=== PATIENT | male | born 1955 | race American Indian/Alaskan Native ===

== ENCOUNTER 2017-11-24 20:02 | Observation (INO) | payer MEDICARE, OTHER ==
--- NOTE | 2017-11-24 20:45 | ED PDOC ---
Arrival/HPI - General Chief Complaint: Altered Mental Status Time Seen by Provider: 11/24/17 20:24 Historian: Spouse EM Caveat: Altered Mental Status - History of Present Illness Time/Duration: Prior to Arrival Symptom Onset: Gradual Symptom Course: Worsening Severity Level: Severe Associated Symptoms (Text): 11/24/17 20:42 reports that the patient complains of numbness of the entire left side of his body along with weakness which began upon awakening this morning. reports he complained of left-sided chest pain. She reports she has cardiac stents from [place]. He was seen in another hospital emergency department and she reports he signed himself out as he was feeling better. He was to be admitted. He was on his way home when the numbness on the left side of his body returned and he fell to the street. There was no injury. The patient is currently nonverbal and unable to give any history. History is obtained from the . This has never occurred previously. He is able to follow commands, but unable to answer questions. Past Medical History - Cardiac Other/Comment: "stim" L side chest. - Psychiatric Hx Substance Use: No - Surgical History Hx Orthopedic Surgery: Yes ([place] in R leg after fall.) - Anesthesia Hx Anesthesia: Yes Hx Anesthesia Reactions: No Family/Social History - Physician Review Nursing Documentation Reviewed: Yes Family/Social History: Unknown Family HX Smoking Status: Never Smoked Hx Alcohol Use: No Hx Substance Use: No Allergies/Home Meds Allergies/Adverse Reactions: Allergies Iodinated Contrast- Oral and IV Dye Allergy (Verified 11/24/17 20:38) SWELLING Review of Systems - Review of Systems Systems not reviewed;Unavailable: Altered Mental Status Physical Exam Vital Signs Temp Pulse Resp BP Pulse Ox 11/24/17 22:00 97.1 F L 11/24/17 20:36 71 18 142/77 98 Temperature: Afebrile Blood Pressure: Normal Pulse: Regular Respiratory Rate: Normal Appearance: Positive for: Well-Appearing, Non-Toxic, Comfortable Pain Distress: None Mental Status: Positive for: Lethargic, other (He will follow commands. Nonverbal.) - Systems Exam Head: Present: Atraumatic, Normocephalic Pupils: Present: PERRL Extroacular Muscles: Present: EOMI Conjunctiva: Present: Normal Ears: Present: NORMAL TM, Normal Canal. No: Erythema Mouth: Present: Moist Mucous Membranes Pharnyx: No: ERYTHEMA, EXUDATE, TONSILS ENLARGED Neck: Present: Normal Range of Motion Respiratory/Chest: Present: Clear to Auscultation, Good Air Exchange, Decreased Breath Sounds. No: Respiratory Distress, Accessory Muscle Use Cardiovascular: Present: Regular Rate and Rhythm, Normal S1, S2. No: Murmurs Abdomen: No: Tenderness, Distention, Peritoneal Signs, Rebound, Guarding Back: Present: Normal Inspection Upper Extremity: Present: Normal Inspection. No: Cyanosis, Edema Lower Extremity: Present: Normal Inspection. No: Edema Neurological: Present: GCS=15, CN II-XII Intact, Speech Normal, Motor Func Grossly Intact. No: Normal Sensory Function (Unable to test), Normal Cerebellar Funct (Unable to test), Gait Normal (Unable to test) Skin: Present: Warm, Dry, Normal Color. No: Rashes Medical Decision Making ED Course and Treatment: 11/24/17 22:04 EKG shows normal sinus rhythm rate approximately 70 with a primary AV block and nonspecific ST and T-wave changes with no old available for comparison. 11/24/17 22:09 Discussed with , who will place on telemetry observation on the hospitalist service. 11/24/17 22:28 CT scan of the head as read by the [facility] radiology shows no acute findings. - Lab Interpretations Lab Results: 11/24/17 21:00 11/24/17 21:00 Lab Results 11/24/17 21:56: Urine Opiates Screen Negative, Urine Methadone Screen Negative, Ur Barbiturates Screen Negative, Ur Phencyclidine Scrn Negative, Ur Amphetamines Screen Negative, U Benzodiazepines Scrn Negative, U Oth Cocaine Metabols Negative, U Cannabinoids Screen Negative 11/24/17 21:41: Urine Color Light yellow, Urine Appearance Clear, Urine pH 6.0, Ur Specific Elliott 1.015, Urine Protein Negative, Urine Glucose (UA) Negative, Urine Ketones Negative, Urine Blood Negative, Urine Nitrate Negative, Urine Bilirubin Negative, Urine Urobilinogen 0.2, Ur Leukocyte Esterase Negative 11/24/17 21:00: Acetaminophen < 10.0 L 11/24/17 21:00: TSH 3rd Generation 1.47, Alcohol, Quantitative 189 H 11/24/17 21:00: Sodium 147, Potassium 3.4 L, Chloride 107, Carbon Dioxide 24, Anion Gap 19, BUN 9, Creatinine 0.7 L, Est GFR ( Amer) > 60, Est GFR (Non -Af Amer) > 60, Random Glucose 79, Calcium 9.0, Phosphorus 3.8, Magnesium 1.6 L , Total Bilirubin 0.5, AST 100 H, ALT 72 H, Alkaline Phosphatase 89, Lactate Dehydrogenase 497, Total Creatine Kinase 488 H, CK-MB (CK-2) 3.2, CK-MB (CK-2) % Cancelled, Troponin I < 0.01, Total Protein 7.6, Albumin 4.1, Globulin 3.5, Albumin/Globulin Ratio 1.2 11/24/17 21:00: PT 10.8, INR 0.95, APTT 33.1 11/24/17 21:00: WBC 3.1 L, RBC 3.73, Hgb 11.5 L, Hct 33.8 L, MCV 90.6, MCH 30.8 , MCHC 34.0, RDW 14.6 H, Plt Count 144, MPV 10.1, Gran % 38.7 L, Lymph % (Auto) 50.8 H, [place] % (Auto) 8.2 H, Eos % (Auto) 2.0, Baso % (Auto) 0.3, Gran # 1.18 L , Lymph # (Auto) 1.6, [place] # (Auto) 0.3, Eos # (Auto) 0.1, Baso # (Auto) 0.01 - RAD Interpretation Radiology Orders: 11/24/17 20:40 HEAD W/O CONTRAST [CT] Stat 11/24/17 20:41 CHEST PORTABLE [RAD] Stat Chest one view shows no infiltrate effusion or cardiomegaly. Warp Starter: ED Physician - Medication Orders Current Medication Orders: Discontinued Medications Aspirin (Aspirin Chewable) 324 mg PO ONCE ONE Stop: 11/24/17 22:20 Potassium Chloride (Klor-Con 10) 10 meq PO STAT STA Stop: 11/24/17 22:20 Disposition/Present on Arrival - Present on Arrival Any Indicators Present on Arrival: No History of DVT/PE: No History of Uncontrolled Diabetes: No Urinary Catheter: No History of Decub. Ulcer: No History Surgical Site Infection Following: None - Disposition Have Diagnosis and Disposition been Completed?: Yes Diagnosis: Chest pain, Altered mental status, Alcohol intoxication, Hypokalemia Disposition: HOSPITALIZED Disposition Time: 22:27 Patient Plan: Observation, Telemetry Patient Problems: Current Active Problems Problem Status Onset Alcohol intoxication Acute Altered mental status Acute Chest pain Acute Hypokalemia Acute Condition: FAIR Discharge Instructions (ExitCare): Chest Pain (ED) Referrals: Cameron Shaw MD [Primary Care Provider] - Follow up with primary Forms: [employer] ([place])
[2017-11-24 21:46] LABS: BASO # 0.01 K/mm3 (0.0-2.0); BASO % 0.3 % (0.0-3.0); EOS # 0.1 (0.0-0.7); GRAN # 1.18 (1.4-6.5); GRAN % 38.7 % (50.0-68.0); HEMOGLOBIN 11.5 g/dL (14.0-18.0); LYMPH # 1.6 (1.2-3.4); LYMPH % 50.8 % (22.0-35.0); MEAN CELL VOLUME 90.6 fl (80.0-105.0); MEAN CORPUSCULAR HEMOGLOBIN 30.8 pg (25.0-35.0); MEAN PLATELET VOLUME 10.1 fl (7.0-11.0); MONO # 0.3 (0.1-0.6); MONO % 8.2 % (1.0-6.0); RBC 3.73 10^6/uL (3.5-6.1); RED CELL DISTRIBUTION WIDTH 14.6 % (11.5-14.5); WHITE BLOOD COUNT 3.1 10^3/ul (4.5-11.0)
[2017-11-24 21:54] LABS: ALB/GLOB RATIO 1.2 (1.1-1.8); ALBUMIN 4.1 g/dL (3.0-4.8); ALT/SGPT 72 U/L (7-56); AST/SGOT 100 U/L (17-59); BLOOD UREA NITROGEN 9 mg/dL (7-21); GFR NON-AFRICAN AMERICAN > 60
[2017-11-24 22:00] LABS: URINE APPEARANCE CLEAR (CLEAR); URINE BILIRUBIN NEGATIVE (NEGATIVE); URINE BLOOD NEGATIVE (NEGATIVE); URINE COLOR LIGHT YELLOW (YELLOW); URINE GLUCOSE (UA) NEGATIVE (NEGATIVE); URINE LEUKOCYTE ESTERASE NEGATIVE Leu/uL (NEGATIVE); URINE PROTEIN NEGATIVE mg/dL (<30 mg/dL); URINE UROBILINOGEN 0.2 E.U./dL (<1 E.U./dL)
[2017-11-24 22:01] LABS: INR 0.95 (0.93-1.08); PARTIAL THROMBOPLASTIN TIME 33.1 Seconds (25.1-36.5); PROTHROMBIN TIME 10.8 SECONDS (9.4-12.5)
[2017-11-24 22:05] LABS: TROPONIN I < 0.01 ng/mL
[2017-11-24 22:14] LABS: CK-MB 3.2 ng/mL (0.0-3.6)
[2017-11-24] MEDS ORDERED: Potassium Chloride 10 mEq ER Tab PO STA (22:19)
[2017-11-24 22:22] LABS: BARBITURATES, UR NEGATIVE (NEGATIVE); BENZODIAZEPINES, UR NEGATIVE (NEGATIVE); OPIATES, UR NEGATIVE (NEGATIVE); PHENCYCLIDINE, UR NEGATIVE (NEGATIVE)
--- NOTE | 2017-11-24 22:26 | CT ---
EXAM: CT Head Without Intravenous Contrast CLINICAL HISTORY: 62 years old, male; Signs and symptoms; Coma or unconsciousness; Additional info: AMS TECHNIQUE: Axial computed tomography images of the head/brain without intravenous contrast. All CT scans at this facility use one or more dose reduction techniques, viz.: automated exposure control; ma/kV adjustment per patient size (including targeted exams where dose is matched to indication; i.e. head); or iterative reconstruction technique. Coronal and sagittal reformatted images were created and reviewed. COMPARISON: No relevant prior studies available. FINDINGS: Brain: There is mild diffuse cerebral atrophy present, consistent with this patient's age. There is mild diffuse heterogeneity of the white matter attenuation, consistent with chronic white matter ischemic changes. No hemorrhage. Ventricles: The ventricular system demonstrates mild diffuse compensatory enlargement. Bones/joints: Unremarkable. No acute fracture. Soft tissues: Mild left parietal scalp soft tissue swelling. Sinuses: Unremarkable as visualized. No acute sinusitis. Mastoid air cells: Unremarkable as visualized. No mastoid effusion. IMPRESSION: Age-related atrophy and chronic white matter ischemic changes, with no evidence of an acute intracranial abnormality. Mild left parietal scalp soft tissue swelling.
[2017-11-24] MEDS ORDERED: Multivitamin (MVI) 10 ML, Thiamine 100 MG, Folic Acid 1 MG in Dextrose 5% In Water 1,00... IV ONE (23:19)
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
[2017-11-25] MEDS: Sodium Chloride 0.9% 100 ML IV SCH ×3 (02:14→20:30)
[2017-11-25] MEDS: Sodium Chloride 0.9% 1,000 ML IV SCH ×4 (02:37→21:45)
[2017-11-25 03:46] LABS: IRON 53 ug/dL (45-180)
[2017-11-25 04:01] LABS: % IRON SATURATION 25 % (20-55)
[2017-11-25 04:11] LABS: TOTAL IRON BINDING CAPACITY 195 ug/dL (261-462)
[2017-11-25] MEDS ORDERED: Magnesium Sulfate 1 gm in D5W 1 GM/100 ML BAG IVPB ONE (06:26)
[2017-11-25 06:51] VITALS: BMI 23.1
--- NOTE | 2017-11-25 09:00 | RAD ---
HISTORY: ams COMPARISON: No prior. FINDINGS: LUNGS: No active pulmonary disease. PLEURA: No significant pleural effusion identified, no pneumothorax apparent. CARDIOVASCULAR: Normal. OSSEOUS STRUCTURES: No significant abnormalities. VISUALIZED UPPER ABDOMEN: Normal. OTHER FINDINGS: None. IMPRESSION: No active disease.
--- NOTE | 2017-11-25 10:48 | RAD ---
PROCEDURE: Bilateral Knee Radiographs. HISTORY: pain COMPARISON: None. FINDINGS: BONES: Right Knee: There is an intramedullary minal in the right tibia. Chronic fracture deformities. Left Knee: Normal. No fracture. JOINTS: Right Knee: Normal. No osteoarthritis. Left knee: Normal. No osteoarthritis. SOFT TISSUES: Right Knee: Normal. Left Knee: Normal. JOINT EFFUSION: Right Knee: None. Left Knee: None. OTHER FINDINGS: None. IMPRESSION: No acute findings
--- NOTE | 2017-11-25 10:50 | RAD ---
PROCEDURE: Radiographs of the pelvis and bilateral hips HISTORY: pain COMPARISON: None. FINDINGS: BONES: Pelvis: Unremarkable. Right hip:Unremarkable. Left hip:Unremarkable. JOINTS: Right hip: Unremarkable. Left hip: Unremarkable. Sacroiliac Joints: Unremarkable. Pubic symphysis: Unremarkable. SOFT TISSUES: Normal. OTHER FINDINGS: None. IMPRESSION: Unremarkable radiographs of the hips and pelvis.
[2017-11-25 11:02] LABS: BASO # 0.01 K/mm3 (0.0-2.0); BASO % 0.3 % (0.0-3.0); EOS # 0.1 (0.0-0.7); EOS % 2.8 % (1.5-5.0); GRAN # 1.65 (1.4-6.5); GRAN % 50.8 % (50.0-68.0); HEMOGLOBIN 12.2 g/dL (14.0-18.0); LYMPH # 1.1 (1.2-3.4); LYMPH % 32.6 % (22.0-35.0); MEAN CELL VOLUME 90.6 fl (80.0-105.0); MEAN CORPUSCULAR HEMOGLOBIN 30.9 pg (25.0-35.0); MEAN CORPUSCULAR HGB CONC 34.1 g/dl (31.0-37.0); MEAN PLATELET VOLUME 9.6 fl (7.0-11.0); MONO # 0.4 (0.1-0.6); MONO % 13.5 % (1.0-6.0); RBC 3.95 10^6/uL (3.5-6.1); RED CELL DISTRIBUTION WIDTH 14.4 % (11.5-14.5); WHITE BLOOD COUNT 3.3 10^3/ul (4.5-11.0)
[2017-11-25 11:28] LABS: TROPONIN I < 0.01 ng/mL
[2017-11-25 11:31] LABS: ALB/GLOB RATIO 1.1 (1.1-1.8); ALBUMIN 3.9 g/dL (3.0-4.8); ALT/SGPT 78 U/L (7-56); AST/SGOT 115 U/L (17-59); BLOOD UREA NITROGEN 9 mg/dL (7-21); CALCIUM 8.7 mg/dL (8.4-10.5); GFR NON-AFRICAN AMERICAN > 60
[2017-11-25 11:35] LABS: CK-MB 2.3 ng/mL (0.0-3.6)
--- NOTE | 2017-11-25 13:21 | CARD ---
APPROVED REPORT EKG Measurement Heart [id number] <Conclusion> Normal sinus rhythm Minimal voltage criteria for LVH, may be normal variant Borderline ECG
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
--- NOTE | 2017-11-25 15:05 | CARD ---
APPROVED REPORT EKG Measurement Heart [id number] <Conclusion> Normal sinus rhythm Voltage criteria for left ventricular hypertrophy Nonspecific ST and T wave abnormality Abnormal ECG
[2017-11-25] MEDS ORDERED: Barium Sulfate Susp 2.1% w/v, 2.0% w/w 450 mL Bottle PO ONE (15:08)
[2017-11-25 16:41] LABS: HEPATITIS B SURFACE AG Negative (NEGATIVE)
[2017-11-25 16:46] LABS: HEPATITIS B CORE AB NEGATIVE (NEGATIVE)
[2017-11-25 16:58] LABS: HEPATITIS C ANTIBODY NEGATIVE (NEGATIVE)
[2017-11-25 18:13] LABS: HEPATITIS A IGM NEGATIVE (NEGATIVE)
--- NOTE | 2017-11-25 18:53 | US ---
HISTORY: transaminitis COMPARISON: None. TECHNIQUE: Sonographic evaluation of the abdomen. FINDINGS: LIVER: Measures 12.4 cm. Hepatopedal blood flow. Fatty infiltration manifest ultrasonographically as increased echogenicity of the liver parenchyma. No mass. No intrahepatic bile duct dilatation. GALLBLADDER: Unremarkable. No gallstones. COMMON BILE DUCT: Measures 3.5 mm. No stones. No dilatation. PANCREAS: Unremarkable as visualized. No mass. No ductal dilatation. RIGHT KIDNEY: Measures 4.6 x 10.2cm. Normal echogenicity. No calculus, mass, or hydronephrosis. LEFT KIDNEY: Measures 5.4 x 10.3cm. Normal echogenicity. No calculus, mass, or hydronephrosis. Incidental finding(s): Simple cyst lower pole 1.6 x 1.4 cm SPLEEN: Normal in size and contour. No mass. AORTA: No aneurysmal dilatation. IVC: Unremarkable. OTHER FINDINGS: None. IMPRESSION: No significant or acute findings to account for/ related to the clinical presentation. Additional benign and/or incidental findings described above.
[2017-11-25] MEDS ORDERED: Loperamide Hydrochloride 1 mg/5 ml Cup PO PRN (20:58)
--- NOTE | 2017-11-25 21:38 | CT ---
EXAM: CT Abdomen and Pelvis Without Intravenous Contrast EXAM DATE/TIME: 11/25/2017 3:05 PM CLINICAL HISTORY: 62 years old, male; Pain; Abdominal pain; Acute TECHNIQUE: Axial computed tomography images of the abdomen and pelvis without intravenous contrast. All CT scans at this facility use one or more dose reduction techniques, viz.: automated exposure control; ma/kV adjustment per patient size (including targeted exams where dose is matched to indication; i.e. head); or iterative reconstruction technique. Coronal and sagittal reformatted images were created and reviewed. COMPARISON: DX - HIP JED W/WO PELVIS 3-4 VIEWS 2017-11-25 09:49 FINDINGS: Lung bases: See below. Heart: Heart size is normal. Lung bases are clearStreak artifact degrades image quality. ABDOMEN: Liver: There are poorly defined low attenuation lesions in the dome of the liver Gallbladder and bile ducts: unremarkable Pancreas: Unremarkable Spleen: Spleen is unremarkable. There is an accessory spleen in the left upper quadrant. Adrenals: unremarkable Kidneys and ureters: There is a 1.4 cm left lower pole renal cyst.Kidneys and ureters are otherwise unremarkable. Stomach and bowel: Stomach is incompletely distended. Rotation is normal. There is fluid and air throughout the small bowel. There is a small amount of oral contrast in distal small bowel. Terminal ileum is unremarkable. Appendix is unremarkable. There is contrast and air throughout the colon. PELVIS: Appendix: See stomach and bowel Bladder: unremarkable Reproductive: The prostate is enlarged.Seminal vesicles have the expected configuration. ABDOMEN and PELVIS: Intraperitoneal space: There is no free air or free fluid. Bones/joints: There are degenerative changes in the osseus structures. Soft tissues: unremarkable Vasculature: There are vascular calcifications. Lymph nodes: There is no pathologic adenopathy. IMPRESSION: Poorly defined low attenuation lesion in the dome of the liver difficult to further characterize and define, solid viscera are otherwise unremarkable; no bowel obstruction
[2017-11-26] MEDS: Sodium Chloride 0.9% 1,000 ML IV SCH (04:27)
[2017-11-26 05:50] VITALS: O2SAT 99
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
[2017-11-26 06:32] LABS: BASO # 0.01 K/mm3 (0.0-2.0); BASO % 0.4 % (0.0-3.0); EOS # 0.1 (0.0-0.7); EOS % 1.8 % (1.5-5.0); GRAN # 1.41 (1.4-6.5); GRAN % 52.1 % (50.0-68.0); HEMOGLOBIN 11.6 g/dL (14.0-18.0); LYMPH # 0.9 (1.2-3.4); LYMPH % 33.9 % (22.0-35.0); MEAN CELL VOLUME 90.3 fl (80.0-105.0); MEAN CORPUSCULAR HEMOGLOBIN 30.3 pg (25.0-35.0); MEAN CORPUSCULAR HGB CONC 33.5 g/dl (31.0-37.0); MEAN PLATELET VOLUME 10.8 fl (7.0-11.0); MONO # 0.3 (0.1-0.6); MONO % 11.8 % (1.0-6.0); RBC 3.83 10^6/uL (3.5-6.1); RED CELL DISTRIBUTION WIDTH 14.2 % (11.5-14.5)
[2017-11-26 06:48] LABS: ALB/GLOB RATIO 1.1 (1.1-1.8); ALBUMIN 3.6 g/dL (3.0-4.8); ALT/SGPT 71 U/L (7-56); AST/SGOT 87 U/L (17-59); BLOOD UREA NITROGEN 6 mg/dL (7-21); CALCIUM 8.5 mg/dL (8.4-10.5); GFR NON-AFRICAN AMERICAN > 60
[2017-11-26 07:23] LABS: CK-MB 1.3 ng/mL (0.0-3.6)
[2017-11-26 07:26] LABS: WHITE BLOOD COUNT 2.7 10^3/ul (4.5-11.0)
--- NOTE | 2017-11-26 07:59 | CP.PCM.PN ---
Objective - Vital Signs/Intake and Output Vital Signs (last 24 hours): Temp Pulse Resp BP Pulse Ox 98.9 F 75 20 143/80 99 11/26/17 05:49 11/26/17 05:49 11/26/17 05:49 11/26/17 05:49 11/26/17 05:49 Intake and Output: 11/26/17 11/26/17 06:59 18:59 Intake Total 1650 Output Total 1300 Balance 350 - Medications Medications: Current Medications Aspirin (Aspirin Chewable) 81 mg PO DAILY [facility] Last Admin: 11/25/17 10:42 Dose: 81 mg Atorvastatin Calcium (Lipitor) 40 mg PO DIN [facility] Last Admin: 11/25/17 18:38 Dose: 40 mg Chlordiazepoxide (Librium) 25 mg PO BID PRN; Protocol PRN Reason: Anxiety Last Admin: 11/25/17 21:43 Dose: 25 mg Folic Acid (Folic Acid) 1 mg PO DAILY [facility] Last Admin: 11/25/17 10:42 Dose: 1 mg Sodium Chloride (Sodium Chloride 0.9%) 1,000 mls @ 150 mls/hr IV .Q6H40M [facility] Last Admin: 11/26/17 04:27 Dose: 150 mls/hr Loperamide HCl (Imodium) 2 mg PO Q4H PRN PRN Reason: Diarrhea Last Admin: 11/25/17 21:43 Dose: 2 mg Lorazepam (Ativan) 1 mg IVP Q4H PRN; Protocol PRN Reason: Anxiety Multivitamins/Minerals (Therapeutic-M Tab) 1 tab PO 0800 [facility] Thiamine HCl (Vitamin B1 Tab) 100 mg PO DAILY [facility] Last Admin: 11/25/17 10:42 Dose: 100 mg - Labs Labs: 11/26/17 05:35 11/26/17 05:35 PT 10.8 SECONDS (9.4-12.5) 11/24/17 21:00 INR 0.95 (0.93-1.08) 11/24/17 21:00 APTT 33.1 Seconds (25.1-36.5) 11/24/17 21:00
[2017-11-26] MEDS ORDERED: Multivitamin With Minerals Tab PO SCH (08:00)
[2017-11-26] MEDS ORDERED: Potassium Chloride 20 mEq ER Tab PO ONE (08:25)
[2017-11-26] MEDS ORDERED: Magnesium Sulfate 1 gm in D5W 1 GM/100 ML BAG IVPB ONE (08:26)
[2017-11-26 12:40] VITALS: BP 140/73; PULSE 99; RESP 19; TEMP 98.6
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
--- NOTE | 2017-11-27 03:04 | CON ---
DATE: 11/26/2017 HISTORY OF PRESENT ILLNESS: In short, the patient is a 62-year-old -Citizen Of [place] male with not known previous psychiatric history, most likely the patient has history of alcohol related dementia. The patient was admitted on the medical site for evaluation of change in mental status, alcohol withdrawal symptoms, was cleared by medical team. The patient seems to be depressed, that is why this consumer loan underwriter was involved into the patient care. The patient was seen and examined, discussed with Dr. Alberto from the medical team. The patient never verbalized thoughts of killing himself or others and never have history of psychiatric admissions in the past. This consumer loan underwriter evaluated the patient, discussed with Dr. Alberto. The patient presented to be alert. The patient seems to be poor and unreliable historian. The patient said that he was feeling depressed because of his mother's , which happened about 3 months ago. The patient reported that he was coping with his loss by drinking alcohol. The patient denied any thoughts of killing himself or others, denied intent or plan. The patient reported at times he feels very anxious and depressed. This consumer loan underwriter offered the patient admission to the Psychiatric Inpatient Unit, but the patient declined that offer. Collaterals from the patient's who is next to him. The patient is not psychotic and compliant with the medications on the medical site. This consumer loan underwriter reviewed vital signs. Temperature 98.6, pulse is 99, blood pressure 140/73, respirations 19. MEDICATIONS: Reviewed. The patient is on aspirin, Lipitor, Librium 25 mg as needed for anxiety and withdrawal symptoms, folic acid, Imodium, Ativan as needed though the patient did not require that, multivitamins, K-Dur, sodium chloride, and thiamine. The patient does not have any aggressiveness or any behavioral issues while he is on the medical site. Labs reviewed. Most recent was from today. Urine drug screen was negative for any substances. Blood alcohol level was 189 at the time of admission. The patient does not have any withdrawal symptoms at present moment. MENTAL STATUS EXAMINATION: The patient appears to be alert and oriented, aware of his circumstances of admission to the medical site. Fair eye contact. Speech was somewhat underproductive, low volume. Mood described "I'm okay, but I think I was depressed because of my mother's ." Affect was reactive and mood congruent. Thought process seems to be concrete. Thought content, the patient denied visual, auditory, or tactile hallucinations. Denied paranoid ideation. The patient denied thoughts of harming himself or others. Denied intent or plan. Insight and judgment seems to be improving. Impulses are well controlled. IMPRESSION: Alcohol use disorder, alcohol withdrawal symptoms which seems to be improving. Rule out substance-induced mood disorder, rule out adjustment disorder. PLAN: The patient does not want to sign himself into the Psychiatric Inpatient Unit. The patient denied thoughts of harming himself or others. The patient does not meet criteria for psychiatric inpatient involuntary commitment. Collateral was obtained from the patient's . The patient never verbalized thoughts of killing himself or others. The patient's was willing to accept the patient back home but at the same time, the patient's suggested psychiatric admission, but the patient refused to do so. The patient was provided with information about outpatient clinic at [facility]. The patient deemed not to be in any imminent danger to self or others. The patient might benefit from naltrexone, but it can be done as outpatient. Discussed with the medical team. Should you have any questions, give me a call back. Thank you very much for letting me to participate in the care of your patient. Emilee Akins MD [facility]
== END 2017-11-26 15:10 | disposition home or self-care (01) ==
LOC: ED 20:02 → MERGE 22:24 → ERH 22:24 → 2RNO 11-25 00:49 → INTOOBSV 11-25 08:06 → OBSVTOIN 11-25 08:06
PROVIDERS: ADMIT Internal Medicine; ATTEND Internal Medicine
DX: F10.239 Alcohol dependence with withdrawal, unspecified (principal); R07.9 Chest pain, unspecified; E87.6 Hypokalemia; E86.0 Dehydration; E86.1 Hypovolemia; I10 Essential (primary) hypertension; F10.27 Alcohol dependence with alcohol-induced persisting dementia; F32.9 Major depressive disorder, single episode, unspecified; F41.9 Anxiety disorder, unspecified; K76.0 Fatty (change of) liver, not elsewhere classified; D72.819 Decreased white blood cell count, unspecified; Y90.6 Blood alcohol level of 120-199 mg/100 ml; Z87.440 Personal history of urinary (tract) infections; Z96.698 Presence of other orthopedic joint implants
CPT/HCPCS: 36415; 70450; 71045; 73522; 73560; 74176; 76700; 80053; 80074; 81003; 82140; 82550; 82553; 82554; 82728; 82948; 83540; 83550; 83615; 83735; 84100; 84443; 84484; 85025; 85610; 85730; 87040; 93005; 96365; 96367; 96375; 97116; 97161; 97530; 99285; G0378; G0480; G8978; G8979; J2060; J3411; J3475; J7040; J7070

== ENCOUNTER 2017-12-12 00:27 | Emergency (ER) | payer MEDICARE, OTHER ==
[2017-12-12 00:28] VITALS: BMI 23.1
[2017-12-12 01:17] VITALS: PULSE 98; TEMP 97.9
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
[2017-12-12 05:20] VITALS: BP 126/82; RESP 18; O2SAT 99
--- NOTE | 2017-12-12 08:32 | RAD ---
PROCEDURE: Radiographs of the right tibia and fibula. HISTORY: pain, old injury, minal in place COMPARISON: None available. TECHNIQUE: Frontal and lateral views obtained. FINDINGS: BONES: Intramedullary minal traverses the entire right tibia. No evidence of hardware failure. Healed right fibular fractures. JOINT SPACES: Unremarkable. OTHER FINDINGS: None. IMPRESSION: No acute findings related to/accounting for the clinical presentation.
--- NOTE | 2017-12-12 20:15 | US ---
PROCEDURE: Right lower extremity venous US HISTORY: Leg pain and swelling. Evaluate for DVT. PHYSICIAN(S): Haider Richardson M.D. TECHNIQUE: Duplex sonography and color-flow Doppler with graded compression were used to evaluate the deep venous system of the right lower extremity. FINDINGS: The visualized deep venous system of the right lower extremity is sonographically normal and compressible. Normal waveforms and augmentation are seen. There is no sonographic evidence for deep venous thrombosis in the visualized segments of the right lower extremity. IMPRESSION: 1. No sonographic evidence for deep venous thrombosis in the visualized segments of the right lower extremity.
== END 2017-12-12 05:18 | disposition home or self-care (01) ==
LOC: ED 00:27
DX: G89.29 Other chronic pain (principal); F10.129 Alcohol abuse with intoxication, unspecified; I10 Essential (primary) hypertension; Z87.81 Personal history of (healed) traumatic fracture

== ENCOUNTER 2017-12-15 16:44 | Observation (INO) | payer MEDICARE, OTHER ==
[2017-12-15] MEDS ORDERED: Folic Acid 1 MG, Thiamine 100 MG, Multivitamin (MVI) 10 ML in Dextrose 5% In Water 1,00... IV ONE (16:55)
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
[2017-12-15 17:17] LABS: BASO # 0.02 K/mm3 (0.0-2.0); BASO % 0.6 % (0.0-3.0); EOS % 1.2 % (1.5-5.0); GRAN # 1.32 (1.4-6.5); GRAN % 40.2 % (50.0-68.0); HEMOGLOBIN 11.7 g/dL (14.0-18.0); LYMPH # 1.6 (1.2-3.4); LYMPH % 49.5 % (22.0-35.0); MEAN PLATELET VOLUME 9.7 fl (7.0-11.0); MONO # 0.3 (0.1-0.6); MONO % 8.5 % (1.0-6.0); RBC 3.78 10^6/uL (3.5-6.1); WHITE BLOOD COUNT 3.3 10^3/ul (4.5-11.0)
[2017-12-15 17:36] LABS: ALB/GLOB RATIO 1.2 (1.1-1.8); ALBUMIN 4.3 g/dL (3.0-4.8); ALT/SGPT 102 U/L (7-56); AST/SGOT 123 U/L (17-59); BLOOD UREA NITROGEN 7 mg/dL (7-21); CALCIUM 8.6 mg/dL (8.4-10.5); GFR AFRICAN-AMERICAN > 60; GFR NON-AFRICAN AMERICAN > 60
[2017-12-15] MEDS ORDERED: Potassium Chloride 20 mEq ER Tab PO STA (17:39)
[2017-12-15 17:47] LABS: CK-MB 1.9 ng/mL (0.0-3.6)
--- NOTE | 2017-12-15 18:10 | CT ---
PROCEDURE: CT HEAD WITHOUT CONTRAST. HISTORY: head injury r/o fx COMPARISON: 11/24/2017 CT head. TECHNIQUE: Axial computed tomography images were obtained through the head/brain without intravenous contrast. Coronal and sagittal reconstructed images. Radiation dose: Total exam DLP = 910.22 mGy-cm. This CT exam was performed using one or more of the following dose reduction techniques: Automated exposure control, adjustment of the mA and/or kV according to patient size, and/or use of iterative reconstruction technique. FINDINGS: HEMORRHAGE: No intracranial hemorrhage. BRAIN: No mass effect or edema. Cortical atrophy, periventricular small vessel disease. VENTRICLES: Unremarkable. No hydrocephalus. CALVARIUM: Unremarkable. PARANASAL SINUSES: Unremarkable as visualized. No significant inflammatory changes. MASTOID AIR CELLS: Unremarkable as visualized. No inflammatory changes. OTHER FINDINGS: None. IMPRESSION: No acute intracranial abnormalities. No significant findings to account for the clinical presentation. No significant interval change compared to the prior examination(s).
--- NOTE | 2017-12-15 18:17 | CT ---
PROCEDURE: CT Abdomen and Pelvis without intravenous contrast HISTORY: Abdominal pain. COMPARISON: 11/25/2017. CT abdomen and pelvis. 11/25/2017 abdominal ultrasound TECHNIQUE: Unenhanced study. Neither oral nor intravenous contrast administered. Sensitivity and specificity for acute inflammatory processes limited by the absence of oral and intravenous contrast. . Radiation dose: Total exam DLP = 553.98 mGy-cm. This CT exam was performed using one or more of the following dose reduction techniques: Automated exposure control, adjustment of the mA and/or kV according to patient size, and/or use of iterative reconstruction technique. FINDINGS: LOWER THORAX: Unremarkable. LIVER: Hepatic steatosis. Ill-defined area of diminished attenuation unchanged compared to the prior study. GALLBLADDER AND BILE DUCTS: Unremarkable. PANCREAS: Mildly enlarged pancreas without focal abnormality. No gross lesion or ductal dilatation. SPLEEN: Unremarkable. ADRENALS: Unremarkable. No mass. KIDNEYS AND URETERS: Unremarkable. No hydronephrosis. No solid mass. VASCULATURE: Unremarkable. No aortic aneurysm. BOWEL: Unremarkable. No obstruction. No gross mural thickening. APPENDIX: Unremarkable. Normal appendix. PERITONEUM: Unremarkable. No free fluid. No free air. LYMPH NODES: Unremarkable. No enlarged lymph nodes. BLADDER: Unremarkable. REPRODUCTIVE: Unremarkable. BONES: No acute fracture. OTHER FINDINGS: None. IMPRESSION: No acute findings related to/accounting for the clinical presentation. Hepatomegaly, hepatic steatosis. Variable area of abnormal attenuation in the dome of the liver similar to that seen previously without ultrasound correlate. Additional benign and/or incidental findings described above.
--- NOTE | 2017-12-15 18:19 | CT ---
PROCEDURE: CT scan of the orbits dated 12/15/2017 HISTORY: Right orbital pain. COMPARISON: Comparison made with concurrent CT scan of the brain. TECHNIQUE: Contiguous helical/ transaxial CT sections of the orbits were obtained. Coronal and sagittal reformats were generated. Radiation dose: Total exam DLP = 791.88 mGy-cm. This CT exam was performed using one or more of the following dose reduction techniques: Automated exposure control, adjustment of the mA and/or kV according to patient size, and/or use of iterative reconstruction technique. .. FINDINGS: The current study reveals no evidence of acute maxillofacial skeletal fracture. The osseous structures appear intact. The bony orbits are intact however there appears to be mild right periorbital soft tissue swelling. . . Orbital contents unremarkable. Globes intact and lenses appropriately located. There are no retrobulbar hemorrhages or collections. The optic nerves and extraocular musculature unremarkable. Frontal sinuses are underpneumatized/hypoplastic. Remaining visualized paranasal sinuses well-developed and currently well-aerated. No fluid levels seen to suggest acute sinusitis. Minor mucosal thickening seen within the right maxillary antrum. Minimal mucosal thickening left maxillary antrum. There is mild leftward deviation of nasal septum associate with a small left-sided septal bone spur. . IMPRESSION: No evidence of acute maxillofacial skeletal fracture. Mild right periorbital soft tissue swelling.
[2017-12-15 18:46] LABS: TROPONIN I < 0.01 ng/mL
--- NOTE | 2017-12-15 20:11 | ED PDOC ---
Physical Exam Vital Signs Reviewed: Yes Vital Signs Temp Pulse Resp BP Pulse Ox 12/15/17 17:01 98.9 F 85 18 132/69 100 Temperature: Afebrile Blood Pressure: Normal Pulse: Regular Respiratory Rate: Normal Appearance: Positive for: Well-Appearing, Non-Toxic, Comfortable Pain Distress: None Mental Status: Positive for: Alert and Oriented X 3 Medical Decision Making ED Course and Treatment: 12/15/17 19:20 Patient endorsed to my by Dr. Floyd. Patient presented with complaint of altered mental status, chest pain, and abdominal pain. patient was found to be intoxicated. CT scan of the head and abdomen/pelvis performed prior to sign out were normal. Patient is currently resting comfortably. 12/15/17 19:55 Called by nurse; patient with complaint of recurrent left chest pain. 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 Patient is complaining of intermittent chest discomfort. is concerned because of patient's past cardiac history. At this time, patient will be admitted to hospital on observation. House doctor notified. 12/15/17 20:07 Discussed case in detail with Dr. Martinez. Patient will be placed in hospital on observation to rule out CAD. - Lab Interpretations Lab Results: 12/15/17 17:05 12/15/17 17:05 Lab Results 12/15/17 17:13: Lactate Dehydrogenase 625, Troponin I < 0.01 12/15/17 17:05: Alcohol, Quantitative 265 H 12/15/17 17:05: Sodium 148, Potassium 3.5 L, Chloride 108 H, Carbon Dioxide 25, Anion Gap 18, BUN 7, Creatinine 0.8, Est GFR ( Amer) > 60, Est GFR (Non- Af Amer) > 60, Random Glucose 113 H, Calcium 8.6, Magnesium 1.7, Total Bilirubin 0.4, AST 123 H D, ALT 102 H, Alkaline Phosphatase 77, Total Creatine Kinase 339 H, CK-MB (CK-2) 1.9, CK-MB (CK-2) % Cancelled, Total Protein 7.9, Albumin 4.3, Globulin 3.7, Albumin/Globulin Ratio 1.2 12/15/17 17:05: WBC 3.3 L D, RBC 3.78, Hgb 11.7 L, Hct 34.4 L, MCV 91.0, MCH 31.0, MCHC 34.0, RDW 15.0 H, Plt Count 198, MPV 9.7, Gran % 40.2 L, Lymph % ( Auto) 49.5 H, [place] % (Auto) 8.5 H, Eos % (Auto) 1.2 L, Baso % (Auto) 0.6, Gran # 1.32 L, Lymph # (Auto) 1.6, [place] # (Auto) 0.3, Eos # (Auto) 0.0, Baso # (Auto ) 0.02 12/15/17 16:54: POC Glucose (mg/dL) 96 - RAD Interpretation Radiology Orders: 12/15/17 16:55 CHEST PORTABLE [RAD] Stat 12/15/17 16:56 ABD & PELVIS W/O PO OR IV CONT [CT] Stat HEAD W/O CONTRAST [CT] Stat ORBITS/ FACIALS W/O CONTRAST [CT] Stat - Medication Orders Current Medication Orders: Folic Acid 1 mg/ Thiamine HCl 100 mg/ Multivitamins/Vitamin C 10 ml/ Dextrose 1 ,011.2 mls @ 100 mls/hr IV ONCE ONE Stop: 12/16/17 03:01 Last Admin: 12/15/17 18:07 Dose: 100 mls/hr eMAR Start Stop Document 12/15/17 18:07 [facility] (Rec: 12/15/17 18:07 [facility] [id number]) Intravenous Solution Start Date 12/15/17 Start Time 18:07 Discontinued Medications Potassium Chloride (K-Dur 20 Meq Er Tab) 40 meq PO STAT STA Stop: 12/15/17 17:40 Last Admin: 12/15/17 18:07 Dose: 40 meq - Scribe Statement The provider has reviewed the documentation as recorded by the Yayo Viera Provider Scribe Attestation: All medical record entries made by the Yayo were at my direction and personally dictated by me. I have reviewed the chart and agree that the record accurately reflects my personal performance of the history, physical exam, medical decision making, and the department course for this patient. I have also personally directed, reviewed, and agree with the discharge instructions and disposition. Disposition/Present on Arrival - Present on Arrival Any Indicators Present on Arrival: No History of DVT/PE: No History of Uncontrolled Diabetes: No Urinary Catheter: No History of Decub. Ulcer: No History Surgical Site Infection Following: None - Disposition Have Diagnosis and Disposition been Completed?: Yes Diagnosis: Alcohol intoxication, Head injury, Subconjunctival hemorrhage of right eye, Chest pain Disposition: HOSPITALIZED Disposition Time: 20:28 Patient Problems: Current Active Problems Problem Status Onset Alcohol intoxication Acute Head injury Acute Subconjunctival hemorrhage of right eye Acute Condition: STABLE Discharge Instructions (ExitCare): Chest Pain (ED) Referrals: [facility] Maura Fitzpatrick, [Non-Staff] - Follow up with primary
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
[2017-12-15 22:12] LABS: AMYLASE 94 U/L (35-125); LIPASE 144 U/L (23-300)
[2017-12-15 22:25] LABS: TROPONIN I < 0.01 ng/mL
[2017-12-16 00:35] VITALS: BMI 23.1
[2017-12-16] MEDS: Pantoprazole 40 mg EC Tab PO SCH (05:09)
[2017-12-16] MEDS: Sodium Chloride 0.9% 100 ML IV SCH ×2 (06:11→07:20)
[2017-12-16 06:43] LABS: BASO # 0.02 K/mm3 (0.0-2.0); BASO % 0.7 % (0.0-3.0); EOS # 0.1 (0.0-0.7); EOS % 3.5 % (1.5-5.0); GRAN # 1.4 (1.4-6.5); GRAN % 49.7 % (50.0-68.0); HEMOGLOBIN 11.2 g/dL (14.0-18.0); LYMPH % 35.8 % (22.0-35.0); MEAN CELL VOLUME 91.7 fl (80.0-105.0); MEAN CORPUSCULAR HEMOGLOBIN 30.9 pg (25.0-35.0); MEAN CORPUSCULAR HGB CONC 33.7 g/dl (31.0-37.0); MEAN PLATELET VOLUME 9.9 fl (7.0-11.0); MONO # 0.3 (0.1-0.6); MONO % 10.3 % (1.0-6.0); RBC 3.62 10^6/uL (3.5-6.1)
[2017-12-16 06:49] LABS: WHITE BLOOD COUNT 2.8 10^3/ul (4.5-11.0)
[2017-12-16 07:00] VITALS: O2SAT 100
[2017-12-16 07:08] LABS: TROPONIN I < 0.01 ng/mL
[2017-12-16 07:10] LABS: ALB/GLOB RATIO 1.1 (1.1-1.8); ALBUMIN 3.7 g/dL (3.0-4.8); ALT/SGPT 90 U/L (7-56); AST/SGOT 115 U/L (17-59); BLOOD UREA NITROGEN 7 mg/dL (7-21); CALCIUM 8.4 mg/dL (8.4-10.5); GFR AFRICAN-AMERICAN > 60; GFR NON-AFRICAN AMERICAN > 60
--- NOTE | 2017-12-16 07:18 | CP.PCM.PN ---
<Yogi Soto - Last Filed: 12/16/17 14:36> Subjective - Date & Time of Evaluation Date of Evaluation: 12/16/17 Time of Evaluation: 07:00 - Subjective Subjective: Medicine Progress note- Dr. Stinson Patient seen and examined at bedside this morning. Responding to verbal commands. No acute events overnight. On CIWA protocol. On scheduled Ativan. PRN Current CIWA score 10. No PRN ativan given at this time. During encounter patient went into detail about how he is under more stress than normal after loosing his place of living. Recent trop negative x 3. Denies: nausea, vomiting, chest pain, shortness of breath, fevers Objective - Vital Signs/Intake and Output Vital Signs (last 24 hours): Temp Pulse Resp BP Pulse Ox 98.5 F 81 20 145/93 H 100 12/16/17 06:00 12/16/17 06:00 12/16/17 06:00 12/16/17 06:00 12/16/17 06:00 Intake and Output: 12/16/17 12/16/17 06:59 18:59 Intake Total 1940 Output Total 1600 Balance 340 - Medications Medications: Current Medications Folic Acid (Folic Acid) 1 mg PO DAILY [facility] Heparin Sodium (Porcine) (Heparin) 5,000 units SC Q12H JAYME PRN Reason: Protocol Last Admin: 12/15/17 23:00 Dose: 5,000 units Magnesium 2 gm/50 ml NS (Magnesium Sulfate 2 Gm/50 Ml Ns) 2 gm in 50 mls @ 50 mls/hr IVPB ONCE ONE Stop: 12/16/17 08:13 Lorazepam (Ativan) 2 mg IVP Q6H JAYME PRN Reason: Protocol Last Admin: 12/16/17 05:09 Dose: 2 mg Lorazepam (Ativan) 2 mg IVP Q2H PRN; Protocol PRN Reason: Symptoms of alcohol withdrawl Multivitamins/Minerals (Therapeutic-M Tab) 1 tab PO 0800 [facility] Pantoprazole Sodium (Protonix Ec Tab) 40 mg PO 0600 [facility] Last Admin: 12/16/17 05:09 Dose: 40 mg Thiamine HCl (Vitamin B1 Tab) 100 mg PO DAILY [facility] - Labs Labs: 12/16/17 06:30 12/16/17 06:30 APTT 35.3 Seconds (25.1-36.5) 12/16/17 06:30 - Constitutional Appears: Non-toxic, No Acute Distress - Eye Exam Eye Exam: EOMI, Nystagmus Additional comments: Right eye injected and red - ENT Exam ENT Exam: Mucous Membranes Moist - Respiratory Exam Respiratory Exam: Clear to Ausculation Bilateral, NORMAL BREATHING PATTERN. absent: Accessory Muscle Use, Rales, Rhonchi, Wheezes, Respiratory Distress - Cardiovascular Exam Cardiovascular Exam: +S1, +S2. absent: Bradycardia, Tachycardia - GI/Abdominal Exam GI & Abdominal Exam: Soft. absent: Distended, Firm, Guarding, Rigid, Tenderness - Extremities Exam Extremities Exam: absent: Calf Tenderness - Neurological Exam Neurological Exam: Alert, Awake - Psychiatric Exam Psychiatric exam: Flat Affect - Skin Skin Exam: Intact, Warm Assessment and Plan - Assessment and Plan (Free Text) Assessment: 62M with PMHx chronic alcoholism admitted for AMS 2/2 intoxication ETOH > 260 currently on SIWA protocol, chest pain currently resolved, and trop x3 negative. CT Head/Orbit: No evidence of fracture, no intracranial abnormalities CXR: no active pulm disease Plan: Altered Mental Status 2/2 ETOH intoxication - initial quantitative ETOH 260 - ammonia level WNL - PO multivitamin - IV banana bag given - CIWA protocol in place; No PRN Ativan given * will change scheduled Ativan to PRN - counselled and advised patient to stop drinking Abdominal Pain; transaminitis - elevated LFTs 2/2 ETOH use - abd pain currently resolved - loose BM f/u stool cultures Chest pain -Trop negative x 3 -f/u Echo results - cardiology consult- Dr Dash all recs appreciated Electrolyte- hypomagnesemia - Mag- 1.6; replete with 4g of magnesium (Target 2) Leukopenia - 2/2 chronic ETOH; bone suppression DVT ppx - SC Heparin Dispo - social work consult to mining helper pt in for possible homeless [facility] and placement - PT treat and eval for independence and ADLs Patient seen and discussed w/ Dr. Stinson medical attending PGY1 <Jone Stinson - Last Filed: 12/16/17 15:15> Objective - Vital Signs/Intake and Output Vital Signs (last 24 hours): Temp Pulse Resp BP Pulse Ox 98.7 F 72 18 149/95 H 100 12/16/17 12:00 12/16/17 12:00 12/16/17 12:00 12/16/17 12:00 12/16/17 06:00 Intake and Output: 12/16/17 12/16/17 06:59 18:59 Intake Total 1940 Output Total 1600 Balance 340 - Medications Medications: Current Medications Folic Acid (Folic Acid) 1 mg PO DAILY [facility] Last Admin: 12/16/17 11:14 Dose: 1 mg Heparin Sodium (Porcine) (Heparin) 5,000 units SC Q12H JAYME PRN Reason: Protocol Last Admin: 12/16/17 11:14 Dose: 5,000 units Lorazepam (Ativan) 1 mg IVP Q6H JAYME PRN Reason: Protocol Lorazepam (Ativan) 1 mg IVP Q3H PRN; Protocol PRN Reason: Anxiety Multivitamins/Minerals (Therapeutic-M Tab) 1 tab PO 0800 [facility] Last Admin: 12/16/17 08:18 Dose: 1 tab Pantoprazole Sodium (Protonix Ec Tab) 40 mg PO 0600 [facility] Last Admin: 12/16/17 05:09 Dose: 40 mg Thiamine HCl (Vitamin B1 Tab) 100 mg PO DAILY [facility] Last Admin: 12/16/17 11:14 Dose: 100 mg - Labs Labs: 12/16/17 06:30 12/16/17 06:30 APTT 35.3 Seconds (25.1-36.5) 12/16/17 06:30 Attending/Attestation - Attestation I have personally seen and examined this patient.: Yes I have fully participated in the care of the patient.: Yes I have reviewed all pertinent clinical information, including history, physical exam and plan: Yes Notes (Text): 12/16/17 15:11 62 year old male with past medical history of chronic ETOH abuse who was admitted with alcohol intoxication, chest pain and diarrhea. He was counselled on alcohol cessation. He is on multivitamin, folic acid and thiamine. He is on ativan for withdrawal symptoms. Cardiac enzymes x 3 are negative and ACS has been ruled out. He is pending cardiology evaluation and echocardiogram. Elevated LFTs likely secondary to ETOH abuse. Recent hepatitis panel was negative. Will continue to monitor. Leukopenia also likely secondary to chronic ETOH abuse. Will continue to monitor. Stool studies ordered for loose stools which he states has improved. Will replete and repeat lytes. Patient complains of stress and homelessness. Emotional support was provided. photofinishing laboratory worker evaluation is requested. Jone Stinson MD Hospitalist.
--- NOTE | 2017-12-16 07:45 | RAD ---
HISTORY: chest pain COMPARISON: 11/24/2017 FINDINGS: LUNGS: No active pulmonary disease. PLEURA: No significant pleural effusion identified, no pneumothorax apparent. CARDIOVASCULAR: Normal. OSSEOUS STRUCTURES: No significant abnormalities. VISUALIZED UPPER ABDOMEN: Normal. OTHER FINDINGS: None. IMPRESSION: No active disease.
[2017-12-16] MEDS: Multivitamin With Minerals Tab PO SCH (08:18)
[2017-12-16] MEDS: Magnesium 2 gm/50 ml NS 2 GM/50 ML BAG IVPB ONE ×2 (08:18→15:15)
--- NOTE | 2017-12-16 10:45 | CARD ---
APPROVED REPORT EKG Measurement Heart [id number] <Conclusion> Normal sinus rhythm QS V1, V2 c/w Septal infarct, new since 11/25/17 ECG LVH NSSTW changes
--- NOTE | 2017-12-16 10:49 | CARD ---
APPROVED REPORT EKG Measurement Heart [id number] SC [id number] <Conclusion> Normal sinus rhythm Septal OK NSSTW changes No change
[2017-12-16] MEDS ORDERED: Magnesium Citrate Oral SOL (300 ml) PO ONE (10:57)
[2017-12-16] MEDS ORDERED: Magnesium 2 gm/50 ml NS 2 GM/50 ML BAG IVPB ONE (11:29)
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
--- NOTE | 2017-12-16 18:47 | CARD ---
APPROVED REPORT EXAM: Two-dimensional and M-mode echocardiogram with Doppler and color Doppler. INDICATION Chest Pain 2D DIMENSIONS Left Atrium (2D)3.8 (1.6-4.0cm)IVSd1.3 (0.7-1.1cm) LVDd4.7 (3.9-5.9cm)PWd1.0 (0.7-1.1cm) LVDs3.6 (2.5-4.0cm)FS (%) 23.8 % LVEF (%)47.4 (>50%) M-Mode DIMENSIONS Aortic Root2.40 (2.2-3.7cm)Aortic Cusp Exc.2.00 (1.5-2.0cm) Aortic Valve AoV Peak Segsjeof009.0cm/Ramona Peak GR.7mmHg Mitral Valve MV E Scvvedsg37.6cm/sMV A Qdjkxmiv49.5cm/sE/A ratio1.2 TDI E/Lateral E'0.0E/Medial E'0.0 LEFT VENTRICLE The left ventricle is normal size. Proximal septal thickening is noted. The systolic function is mildly impaired. There is mild to moderate hypokinesis in the inferoseptal wall. RIGHT VENTRICLE The right ventricle is normal size. The right ventricular systolic function is normal. ATRIA The left atrium size is normal. The right atrium size is normal. The interatrial septum is intact with no evidence for an atrial septal defect. AORTIC VALVE The aortic valve is normal in structure. There is no aortic valvular stenosis. MITRAL VALVE The mitral valve is normal in structure. Mitral regurgitation is mild. TRICUSPID VALVE The tricuspid valve is normal in structure. There is mild tricuspid regurgitation. PULMONIC VALVE The pulmonary valve is normal in structure. GREAT VESSELS The aortic root is normal in size. The IVC is normal in size and collapses >50% with inspiration. PERICARDIAL EFFUSION There is no pleural effusion. There is no pericardial effusion. <Conclusion> Normal chamber size. Mildly reduced LV systolic function with inferoseptal hypokinesis. Mild basal septal hypertrophy. Mild mitral regurgitation. Mild tricuspid regurgitation.
[2017-12-17 00:50] VITALS: RESP 20
[2017-12-17] MEDS: Pantoprazole 40 mg EC Tab PO SCH (05:44)
[2017-12-17 06:36] LABS: MEAN CORPUSCULAR HEMOGLOBIN 30.8 pg (25.0-35.0); MEAN CORPUSCULAR HGB CONC 33.9 g/dl (31.0-37.0); MEAN PLATELET VOLUME 10.3 fl (7.0-11.0); RBC 3.89 10^6/uL (3.5-6.1); RED CELL DISTRIBUTION WIDTH 14.4 % (11.5-14.5)
[2017-12-17 06:39] LABS: WHITE BLOOD COUNT 2.8 10^3/ul (4.5-11.0)
[2017-12-17 07:19] LABS: ALBUMIN 3.6 g/dL (3.0-4.8); ALT/SGPT 92 U/L (7-56); AST/SGOT 97 U/L (17-59); BLOOD UREA NITROGEN 11 mg/dL (7-21); CALCIUM 8.8 mg/dL (8.4-10.5); GFR AFRICAN-AMERICAN > 60; GFR NON-AFRICAN AMERICAN > 60
[2017-12-17] MEDS: Multivitamin With Minerals Tab PO SCH (08:44)
[2017-12-17 12:17] VITALS: BP 142/77; TEMP 98.5
--- NOTE | 2017-12-17 13:39 | PN ---
DATE: 12/17/2017 SUBJECTIVE: The patient is seen sitting in bed on Telemetry. He denies any chest pain. He does have some epigastric discomfort. Cardiac workup has been negative thus far. CURRENT MEDICATIONS: Include Ativan p.r.n., folic acid, Protonix. PHYSICAL EXAMINATION: GENERAL: He is a disheveled-appearing middle-aged man. VITAL SIGNS: Blood pressure is 142/70 with a pulse of 96 and sinus, respirations are 14. He is afebrile. HEENT: No JVD. CHEST: Bilateral scattered rhonchi. HEART: PMI displaced laterally and no pathological murmur is noted. ABDOMEN: Soft. Mild epigastric tenderness. Normoactive bowel sounds. EXTREMITIES: No edema. DIAGNOSTIC DATA: Potassium 3.7, BUN and creatinine 11 and 0.8. White count 3.8, hemoglobin and hematocrit 12 and 35.4 with platelet count of 192, 000. AST and ALT 97 and, 92. Echocardiogram was performed and reviewed. This revealed mildly reduced LV systolic function with inferior septal hypokinesis, mild basal septal hypertrophy, mild mitral and tricuspid regurgitation. IMPRESSION: 1. Acute alcohol intoxication, clinically improved. 2. Apparent coronary artery disease, status post remote percutaneous coronary intervention, details unclear. 3. Mild mitral and tricuspid regurgitation. 4. Probable alcoholic hepatitis. 5. Probable gastroesophageal reflux or gastritis. RECOMMENDATIONS: No further cardiac workup appears necessary at the present time. Alcohol abstinence was strongly encouraged and also, contraindication exists; resumption of low-dose aspirin therapy as well as beta aga should be considered. We will be happy to see the patient as needed. Bruce Helms MD MTDD
[2017-12-17 15:21] VITALS: PULSE 69
--- NOTE | 2017-12-19 05:25 | CP.PCM.DIS ---
<Raghav Moralez - Last Filed: 12/19/17 05:22> Provider - Provider Date of Admission: 12/15/17 20:08 Attending physician: Jone Stinson MD Primary care physician: Orlando Shaw MD Consults: Cardiology: Dr. Dash Time Spent in preparation of Discharge (in minutes): 40 Diagnosis - Discharge Diagnosis (1) Transaminitis Status: Chronic Priority: High (2) Alcohol intoxication Status: Acute Priority: High (3) Chest pain Status: Acute Priority: High Hospital Course - Lab Results Lab Results: Most Recent Lab Values WBC 2.8 10^3/ul (4.5-11.0) L* 12/17/17 06:00 RBC 3.89 10^6/uL (3.5-6.1) 12/17/17 06:00 Hgb 12.0 g/dL (14.0-18.0) L 12/17/17 06:00 Hct 35.4 % (42.0-52.0) L 12/17/17 06:00 MCV 91.0 fl (80.0-105.0) 12/17/17 06:00 MCH 30.8 pg (25.0-35.0) 12/17/17 06:00 MCHC 33.9 g/dl (31.0-37.0) 12/17/17 06:00 RDW 14.4 % (11.5-14.5) 12/17/17 06:00 Plt Count 192 10^3/uL (120.0-450.0) 12/17/17 06:00 MPV 10.3 fl (7.0-11.0) 12/17/17 06:00 Gran % 49.7 % (50.0-68.0) L 12/16/17 06:30 Lymph % (Auto) 35.8 % (22.0-35.0) H 12/16/17 06:30 [place] % (Auto) 10.3 % (1.0-6.0) H 12/16/17 06:30 Eos % (Auto) 3.5 % (1.5-5.0) 12/16/17 06:30 Baso % (Auto) 0.7 % (0.0-3.0) 12/16/17 06:30 Gran # 1.40 (1.4-6.5) 12/16/17 06:30 Lymph # (Auto) 1.0 (1.2-3.4) L 12/16/17 06:30 [place] # (Auto) 0.3 (0.1-0.6) 12/16/17 06:30 Eos # (Auto) 0.1 (0.0-0.7) 12/16/17 06:30 Baso # (Auto) 0.02 K/mm3 (0.0-2.0) 12/16/17 06:30 APTT 35.3 Seconds (25.1-36.5) 12/16/17 06:30 Sodium 142 mmol/L (132-148) 12/17/17 06:00 Potassium 3.7 mmol/L (3.6-5.0) 12/17/17 06:00 Chloride 104 mmol/L (98-107) 12/17/17 06:00 Carbon Dioxide 28 mmol/L (21-33) 12/17/17 06:00 Anion Gap 14 (10-20) 12/17/17 06:00 BUN 11 mg/dL (7-21) 12/17/17 06:00 Creatinine 0.8 mg/dl (0.8-1.5) 12/17/17 06:00 Est GFR ( Amer) > 60 12/17/17 06:00 Est GFR (Non-Af Amer) > 60 12/17/17 06:00 POC Glucose (mg/dL) 96 mg/dL (65-110) 12/15/17 16:54 Random Glucose 118 mg/dL (70-110) H 12/17/17 06:00 Calcium 8.8 mg/dL (8.4-10.5) 12/17/17 06:00 Phosphorus 3.2 mg/dL (2.5-4.5) 12/17/17 06:00 Magnesium 1.9 mg/dL (1.7-2.2) 12/17/17 06:00 Total Bilirubin 0.8 mg/dL (0.2-1.3) 12/17/17 06:00 AST 97 U/L (17-59) H 12/17/17 06:00 ALT 92 U/L (7-56) H 12/17/17 06:00 Alkaline Phosphatase 80 U/L (38-126) 12/17/17 06:00 Ammonia 21 umol/L (9-33) 12/15/17 21:58 Lactate Dehydrogenase 625 U/L (333-699) 12/15/17 17:13 Total Creatine Kinase 339 U/L (35-230) H 12/15/17 17:05 CK-MB (CK-2) 1.9 ng/mL (0.0-3.6) 12/15/17 17:05 CK-MB (CK-2) % Cancelled 12/15/17 17:05 Troponin I < 0.01 ng/mL 12/16/17 06:30 Total Protein 7.2 g/dL (5.8-8.3) 12/17/17 06:00 Albumin 3.6 g/dL (3.0-4.8) 12/17/17 06:00 Globulin 3.7 gm/dL 12/17/17 06:00 Albumin/Globulin Ratio 1.0 (1.1-1.8) L 12/17/17 06:00 Amylase 94 U/L (35-125) 12/15/17 21:58 Lipase 144 U/L (23-300) 12/15/17 21:58 Alcohol, Quantitative 265 mg/dL (0-10) H 12/15/17 17:05 - Hospital Course Hospital Course: Patient is a 62 M with history of alcohol abuse presenting with alcohol intoxication, diarrhea, and chest pain. For chest pain ACS rule out, cardiology was consulted. Cardiac enzymes were negative x 3 and EKG showed no new abnormalities significant for VT. Cardiology recommended low dose aspirin and beta aga therapy; therefore patient was discharged with aspirin and lopressor. Echocardiogram was performed which revealed normal chamber size, mildly reduced LV systolic function with inferoseptal hypokinesis, mild basal septal hypertrophy, mild mitral regurgitation, and mild tricuspid regurgitation. Alcohol cessation was discussed with patient in great detail. Patient was made aware of the effect it has on his heart, bone marrow ( hematopoiesis suppression evidenced by leukopenia on CBC), as well as liver evidenced by transaminitis which began to downtrend during course of hospital stay. As far as diarrhea, patient apparently has chronic diarrhea on a daily basis which was endorsed by the partner of patient. Social work was also consulted to help patient with a list of shelters as patient is currently homeless. Patient was discharged once stable and in agreement with plan. Case discussed with Dr. Shantell Moralez PGY1 Discharge Exam - Head Exam Head Exam: ATRAUMATIC, NORMAL INSPECTION, NORMOCEPHALIC - Eye Exam Eye Exam: absent: Normal appearance (erythema due to injury) - Respiratory Exam Respiratory Exam: Clear to PA & Lateral. absent: Rhonchi, Wheezes - Cardiovascular Exam Cardiovascular Exam: REGULAR RHYTHM, +S1, +S2 - GI/Abdominal Exam GI & Abdominal Exam: Normal Bowel Sounds, Unremarkable - Extremities Exam Extremities exam: pedal pulses present - Back Exam Back exam: NORMAL INSPECTION - Neurological Exam Neurological exam: Alert, Oriented x3 - Psychiatric Exam Psychiatric exam: Normal Mood - Skin Skin Exam: Normal Color, Warm Discharge Plan - Discharge Medications Prescriptions: Aspirin [Adult Aspirin] 81 mg PO DAILY #14 tablet. Metoprolol Tartrate 25 mg PO DAILY #14 tablet - Follow Up Plan Condition: STABLE Disposition: HOME/ ROUTINE Instructions: Alcohol Withdrawal, Effects of Alcohol on Your Health, Chest Pain (DC) Referrals: Orlando Shaw MD [Primary Care Provider] - Bladimir Dash MD [Staff Provider] - <Jone Stinson - Last Filed: 12/19/17 07:53> Provider - Provider Date of Admission: 12/15/17 20:08 Attending physician: Jone Stinson MD Primary care physician: Orlando Shaw MD Hospital Course - Lab Results Lab Results: Most Recent Lab Values WBC 2.8 10^3/ul (4.5-11.0) L* 12/17/17 06:00 RBC 3.89 10^6/uL (3.5-6.1) 12/17/17 06:00 Hgb 12.0 g/dL (14.0-18.0) L 12/17/17 06:00 Hct 35.4 % (42.0-52.0) L 12/17/17 06:00 MCV 91.0 fl (80.0-105.0) 12/17/17 06:00 MCH 30.8 pg (25.0-35.0) 12/17/17 06:00 MCHC 33.9 g/dl (31.0-37.0) 12/17/17 06:00 RDW 14.4 % (11.5-14.5) 12/17/17 06:00 Plt Count 192 10^3/uL (120.0-450.0) 12/17/17 06:00 MPV 10.3 fl (7.0-11.0) 12/17/17 06:00 Gran % 49.7 % (50.0-68.0) L 12/16/17 06:30 Lymph % (Auto) 35.8 % (22.0-35.0) H 12/16/17 06:30 [place] % (Auto) 10.3 % (1.0-6.0) H 12/16/17 06:30 Eos % (Auto) 3.5 % (1.5-5.0) 12/16/17 06:30 Baso % (Auto) 0.7 % (0.0-3.0) 12/16/17 06:30 Gran # 1.40 (1.4-6.5) 12/16/17 06:30 Lymph # (Auto) 1.0 (1.2-3.4) L 12/16/17 06:30 [place] # (Auto) 0.3 (0.1-0.6) 12/16/17 06:30 Eos # (Auto) 0.1 (0.0-0.7) 12/16/17 06:30 Baso # (Auto) 0.02 K/mm3 (0.0-2.0) 12/16/17 06:30 APTT 35.3 Seconds (25.1-36.5) 12/16/17 06:30 Sodium 142 mmol/L (132-148) 12/17/17 06:00 Potassium 3.7 mmol/L (3.6-5.0) 12/17/17 06:00 Chloride 104 mmol/L (98-107) 12/17/17 06:00 Carbon Dioxide 28 mmol/L (21-33) 12/17/17 06:00 Anion Gap 14 (10-20) 12/17/17 06:00 BUN 11 mg/dL (7-21) 12/17/17 06:00 Creatinine 0.8 mg/dl (0.8-1.5) 12/17/17 06:00 Est GFR ( Amer) > 60 12/17/17 06:00 Est GFR (Non-Af Amer) > 60 12/17/17 06:00 POC Glucose (mg/dL) 96 mg/dL (65-110) 12/15/17 16:54 Random Glucose 118 mg/dL (70-110) H 12/17/17 06:00 Calcium 8.8 mg/dL (8.4-10.5) 12/17/17 06:00 Phosphorus 3.2 mg/dL (2.5-4.5) 12/17/17 06:00 Magnesium 1.9 mg/dL (1.7-2.2) 12/17/17 06:00 Total Bilirubin 0.8 mg/dL (0.2-1.3) 12/17/17 06:00 AST 97 U/L (17-59) H 12/17/17 06:00 ALT 92 U/L (7-56) H 12/17/17 06:00 Alkaline Phosphatase 80 U/L (38-126) 12/17/17 06:00 Ammonia 21 umol/L (9-33) 12/15/17 21:58 Lactate Dehydrogenase 625 U/L (333-699) 12/15/17 17:13 Total Creatine Kinase 339 U/L (35-230) H 12/15/17 17:05 CK-MB (CK-2) 1.9 ng/mL (0.0-3.6) 12/15/17 17:05 CK-MB (CK-2) % Cancelled 12/15/17 17:05 Troponin I < 0.01 ng/mL 12/16/17 06:30 Total Protein 7.2 g/dL (5.8-8.3) 12/17/17 06:00 Albumin 3.6 g/dL (3.0-4.8) 12/17/17 06:00 Globulin 3.7 gm/dL 12/17/17 06:00 Albumin/Globulin Ratio 1.0 (1.1-1.8) L 12/17/17 06:00 Amylase 94 U/L (35-125) 12/15/17 21:58 Lipase 144 U/L (23-300) 12/15/17 21:58 Alcohol, Quantitative 265 mg/dL (0-10) H 12/15/17 17:05 Attending/Attestation - Attestation I have personally seen and examined this patient.: Yes I have fully participated in the care of the patient.: Yes I have reviewed all pertinent clinical information, including history, physical exam and plan: Yes Notes (Text): 12/17/17 62 year old male with past medical history of chronic ETOH abuse who was admitted with alcohol intoxication, chest pain and diarrhea. He was counselled on alcohol cessation. He was on multivitamin, folic acid and thiamine and tapering ativan for withdrawal symptoms. Cardiac enzymes x 3 are negative and ACS has been ruled out. Echocardiogram was reviewed and he was started on aspirin and metoprolol by cardiology. Elevated LFTs were likely secondary to ETOH abuse. Recent hepatitis panel was negative. Leukopenia was also likely secondary to chronic ETOH abuse. His diarrhea improved. He did not provide stool studies while in hospital. He was seen by community mental health social worker. Overall his symptoms improved. He is discharged home to follow up with his pmd. Follow up with cardiology. Counselled on smoking cessation. Jone Stinson MD Hospitalist.
== END 2017-12-17 15:30 | disposition home or self-care (01) ==
LOC: ED 16:44 → ERH 20:08 → 2RNO 21:32
PROVIDERS: ADMIT Internal Medicine; ATTEND Internal Medicine
DX: F10.229 Alcohol dependence with intoxication, unspecified (principal); H11.31 Conjunctival hemorrhage, right eye; I10 Essential (primary) hypertension; I08.1 Rheumatic disorders of both mitral and tricuspid valves; K76.0 Fatty (change of) liver, not elsewhere classified; I25.10 Atherosclerotic heart disease of native coronary artery without angina pectoris; R19.7 Diarrhea, unspecified; R07.9 Chest pain, unspecified; E83.42 Hypomagnesemia; D72.819 Decreased white blood cell count, unspecified; Y90.8 Blood alcohol level of 240 mg/100 ml or more; Z59.0 Homelessness; S09.90XA Unspecified injury of head, initial encounter; X58.XXXA Exposure to other specified factors, initial encounter
CPT/HCPCS: 36415; 70450; 70480; 71045; 74176; 80053; 82140; 82150; 82550; 82553; 82948; 83615; 83690; 83735; 84100; 84484; 85025; 85027; 85730; 93005; 93306; 97116; 97161; 97530; 99283; G0378; G0480; G8978; G8979; G8980; J1644; J2060; J3411; J3475; J7070

== ENCOUNTER 2017-12-17 21:47 | Emergency (ER) | payer MEDICARE, OTHER ==
[2017-12-17 21:48] VITALS: BMI 23.1
== END 2017-12-17 22:21 | disposition left against medical advice (07) ==
LOC: ED 21:47
DX: Z02.89 Encounter for other administrative examinations (principal)

== ENCOUNTER 2018-06-03 22:07 | Observation (INO) | payer MEDICARE, OTHER ==
[2018-06-03 22:53] LABS: BASO # 0.02 K/mm3 (0.0-2.0); BASO % 0.6 % (0.0-3.0); EOS % 1.3 % (1.5-5.0); GRAN # 1.52 (1.4-6.5); GRAN % 47.4 % (50.0-68.0); HEMOGLOBIN 12.1 g/dL (14.0-18.0); LYMPH # 1.4 (1.2-3.4); LYMPH % 44.1 % (22.0-35.0); MEAN CORPUSCULAR HEMOGLOBIN 31.6 pg (25.0-35.0); MEAN CORPUSCULAR HGB CONC 33.6 g/dl (31.0-37.0); MONO # 0.2 (0.1-0.6); MONO % 6.6 % (1.0-6.0); RBC 3.83 10^6/uL (3.5-6.1); RED CELL DISTRIBUTION WIDTH 14.7 % (11.5-14.5); WHITE BLOOD COUNT 3.2 10^3/uL (4.5-11.0)
[2018-06-03 22:59] LABS: INR 0.94; PARTIAL THROMBOPLASTIN TIME 32.8 Seconds (25.1-36.5); PROTHROMBIN TIME 10.7 SECONDS (9.4-12.5)
--- NOTE | 2018-06-03 23:19 | ED PDOC ---
Arrival/HPI - General Historian: Patient - History of Present Illness Narrative History of Present Illness (Text): 06/03/18 23:05 63yo male with pmhx of alcohol abuse, CAD s/p stent bib EMS with complaint of chest pain and abdominal pain. Also complaining of vomiting. States he drank few bottles of beer today. 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 He denies fever, chills, SOB, diaphoresis, diarrhea, constipation, back pain, MADDEN, sick contact, any other complaint. <Noelle Feldman A - Last Filed: 06/04/18 00:38> <George Hawkins - Last Filed: 06/05/18 11:31> - General Chief Complaint: Abdominal Pain Past Medical History - Provider Review Nursing Documentation Reviewed: Yes - Infectious Disease Hx of Infectious Diseases: None - Cardiac Hx Hypertension: Yes - Pulmonary Hx Respiratory Disorders: No - Neurological Hx Dizziness: Yes - HEENT Hx HEENT Disorder: No - Renal Hx Renal Disorder: No - Endocrine/Metabolic Hx Endocrine Disorders: No - Hematological/Oncological Hx Blood Disorders: No - Integumentary Hx Dermatological Disorder: No - Musculoskeletal/Rheumatological Hx Falls: Yes Hx Fractures: Yes Hx Unsteady Gait: Yes - Gastrointestinal Hx Gastrointestinal Disorders: Yes (Fatty Liver) - Genitourinary/Gynecological Hx Prostate Problems: Yes Hx Urinary Tract Infection: Yes - Psychiatric Hx Psychophysiologic Disorder: Yes (ETOH wine, pint of vodka, beer every day) Hx Anxiety: Yes Hx Depression: Yes Hx Substance Use: No - Surgical History Hx Orthopedic Surgery: Yes ([place] in right leg, Plate in head) - Anesthesia Hx Anesthesia: Yes Hx Anesthesia Reactions: No <Noelle Feldman A - Last Filed: 06/04/18 00:38> Family/Social History - Physician Review Nursing Documentation Reviewed: Yes Family/Social History: Unknown Family HX Smoking Status: Unknown If Ever Smoked Hx Alcohol Use: Yes Hx Substance Use: No <Noelle Feldman A - Last Filed: 06/04/18 00:38> Allergies/Home Meds <Noelle Feldman A - Last Filed: 06/04/18 00:38> <George Hawkins - Last Filed: 06/05/18 11:31> Allergies/Adverse Reactions: Allergies Iodinated Contrast- Oral and IV Dye Allergy (Verified 12/15/17 16:58) SWELLING Review of Systems - Physician Review All systems were reviewed & negative as marked: Yes - Review of Systems Constitutional: Normal Eyes: Normal ENT: Normal Respiratory: Normal Cardiovascular: Chest Pain. absent: Palpitations, Edema, Calf Pain Gastrointestinal: Abdominal Pain, Nausea, Vomiting. absent: Constipation, Diarrhea, Hematochezia, Hematemesis Genitourinary Male: Normal Musculoskeletal: Normal Skin: Normal Neurological: Normal Endocrine: Normal Hemo/Lymphatic: Normal Psychiatric: Normal <Diru,Happiness A - Last Filed: 06/04/18 00:38> Physical Exam Vital Signs Reviewed: Yes Vital Signs Temp Pulse Resp BP Pulse Ox 06/03/18 22:22 98.0 F 88 18 126/70 95 Temperature: Afebrile Blood Pressure: Normal Pulse: Regular Respiratory Rate: Normal Appearance: Positive for: Well-Appearing, Non-Toxic, Comfortable Pain Distress: None Mental Status: Positive for: Alert and Oriented X 3 - Systems Exam Head: Present: Atraumatic, Normocephalic Pupils: Present: PERRL Extroacular Muscles: Present: EOMI Conjunctiva: Present: Normal Mouth: Present: Moist Mucous Membranes Neck: Present: Normal Range of Motion Respiratory/Chest: Present: Clear to Auscultation, Good Air Exchange. No: Respiratory Distress, Accessory Muscle Use, Wheezes, Decreased Breath Sounds, Rales, Retracting, Rhonchi Cardiovascular: Present: Regular Rate and Rhythm, Normal S1, S2. No: Murmurs Abdomen: Present: Tenderness (Epigastric tenderness), Normal Bowel Sounds, Guarding (Voluntary), Other (soft). No: Distention, Peritoneal Signs, Rebound, McBurney's Point Tender, Rovsing's Sign Present Back: Present: Normal Inspection Upper Extremity: Present: Normal Inspection. No: Cyanosis, Edema Lower Extremity: Present: Normal Inspection. No: Edema Neurological: Present: GCS=15, CN II-XII Intact, Speech Normal Skin: Present: Warm, Dry, Normal Color. No: Rashes Psychiatric: Present: Alert, Oriented x 3, Normal Insight, Normal Concentration <Diru,Happiness A - Last Filed: 06/04/18 00:38> Vital Signs Temp Pulse Resp BP Pulse Ox 06/04/18 01:00 88 16 124/62 99 06/03/18 22:22 98.0 F 88 18 126/70 95 <George Hawkins - Last Filed: 06/05/18 11:31> Medical Decision Making ED Course and Treatment: 06/04/18 00:38 PT present to ED for stated history. He had epigastric tenderness on exam. Labs CXR EKG Zofran, Pepcid, 1L NS, ASA Labs was reviewed and first CE was negative. Elevated transaminase was noted which is likely secondary to his alcohol abuse. EKG NSR @ 84bpm CXR NAD Secondary to his cardiac risk he was placed on OBS for a serial CE and EKG Case was DW Dr. Berg and she accepted pt for admission - Lab Interpretations Lab Results: 06/03/18 22:40 Lab Results 06/03/18 22:40: PT 10.7, INR 0.94, APTT 32.8 06/03/18 22:40: WBC 3.2 L, RBC 3.83, Hgb 12.1 L, Hct 36.0 L, MCV 94.0 D, MCH 31.6, MCHC 33.6, RDW 14.7 H, Plt Count 318, MPV 10.0, Gran % 47.4 L, Lymph % (Auto) 44.1 H, [place] % (Auto) 6.6 H, Eos % (Auto) 1.3 L, Baso % (Auto) 0.6, Gran # 1.52, Lymph # (Auto) 1.4, [place] # (Auto) 0.2, Eos # (Auto) 0.0, Baso # (Auto) 0 .02 - RAD Interpretation Radiology Orders: 06/03/18 22:25 CHEST PORTABLE [RAD] Stat - Medication Orders Current Medication Orders: Discontinued Medications Famotidine (Pepcid) 20 mg IVP STAT STA Stop: 06/03/18 22:27 Last Admin: 06/03/18 23:04 Dose: 20 mg IVP Administration Document 06/03/18 23:04 CNR (Rec: 06/03/18 23:04 CNR [id number] Charges for Administration # of IVP Administrations 1 Ondansetron HCl (Zofran Inj) 4 mg IVP STAT STA Stop: 06/03/18 22:27 Last Admin: 06/03/18 23:04 Dose: 4 mg IVP Administration Document 06/03/18 23:04 CNR (Rec: 06/03/18 23:04 CNR [id number]) Charges for Administration # of IVP Administrations 1 <Noelle Feldman - Last Filed: 06/04/18 00:38> - Lab Interpretations Lab Results: 06/03/18 22:40 06/03/18 23:09 Lab Results 06/04/18 00:03: Urine Opiates Screen Negative, Urine Methadone Screen Negative, Ur Barbiturates Screen Negative, Ur Phencyclidine Scrn Negative, Ur Amphetamines Screen Negative, U Benzodiazepines Scrn Negative, U Oth Cocaine Metabols Negative, U Cannabinoids Screen Negative 06/04/18 00:03: Urine Color Yellow, Urine Appearance Sl cloudy, Urine pH 6.0, Ur Specific [place] >= 1.030, Urine Protein 30 H, Urine Glucose (UA) Negative, Urine Ketones Negative, Urine Blood Trace-lysed H, Urine Nitrate Negative, Urine Bilirubin Negative, Urine Urobilinogen 0.2, Ur Leukocyte Esterase Negative, Urine RBC 0 - 2, Urine WBC Negative, Ur Epithelial Cells 3 - 4, Urine Bacteria Few, Urine Other Mucus 06/03/18 23:09: Sodium 146, Potassium 3.7, Chloride 109 H, Carbon Dioxide 26, Anion Gap 15, BUN 13, Creatinine 0.8, Est GFR ( Amer) > 60, Est GFR (Non- Af Amer) > 60, Random Glucose 85, Calcium 9.2, Magnesium 1.8, Total Bilirubin 0.3, AST 85 H, ALT 75 H, Alkaline Phosphatase 82, Lactate Dehydrogenase 479, Total Creatine Kinase 584 H, CK-MB (CK-2) 4.7 H, CK-MB (CK-2) % Cancelled, Troponin I < 0.01, Total Protein 8.2, Albumin 4.3, Globulin 3.9, Albumin/Globulin Ratio 1.1, Lipase 105 06/03/18 22:40: PT 10.7, INR 0.94, APTT 32.8 06/03/18 22:40: WBC 3.2 L, RBC 3.83, Hgb 12.1 L, Hct 36.0 L, MCV 94.0 D, MCH 31.6, MCHC 33.6, RDW 14.7 H, Plt Count 318, MPV 10.0, Gran % 47.4 L, Lymph % (Auto) 44.1 H, [place] % (Auto) 6.6 H, Eos % (Auto) 1.3 L, Baso % (Auto) 0.6, Gran # 1.52, Lymph # (Auto) 1.4, [place] # (Auto) 0.2, Eos # (Auto) 0.0, Baso # (Auto) 0.02 - RAD Interpretation Radiology Orders: 06/03/18 22:25 CHEST PORTABLE [RAD] Stat - Medication Orders Current Medication Orders: Aspirin (Ecotrin) 81 mg PO DAILY [facility] Last Admin: 06/05/18 09:25 Dose: 81 mg Folic Acid (Folic Acid) 1 mg PO DAILY [facility] Last Admin: 06/05/18 09:24 Dose: 1 mg Heparin Sodium (Porcine) (Heparin) 5,000 units SC Q8 [facility]; Protocol Last Admin: 06/05/18 06:03 Dose: 5,000 units Subcutaneous Administrations Document 06/05/18 06:03 CDL (Rec: 06/05/18 06:03 CDL [id number] Injection Site MAR Injection Site Left Abdomen Charges for Administration # of Subcutaneous Administrations 1 Lorazepam (Ativan) 1 mg IVP Q4H PRN; Protocol PRN Reason: Symptoms of alcohol withdrawl Last Admin: 06/04/18 11:32 Dose: 1 mg IVP Administration Document 06/04/18 11:32 (Rec: 06/04/18 11:32 [id number]) Charges for Administration # of IVP Administrations 1 Behavioural Document 06/04/18 11:32 (Rec: 06/04/18 11:32 [id number]) Maintenance Maintenance Dose No Nonmedicinal Nonmedicinal Interventions Redirect Therapeutic Communication Activity See nurse's notes Behavior Behavior for Medication: Anxiety Re-Assess: Reassess Psych Meds Document 06/04/18 12:02 (Rec: 06/04/18 12:06 [id number]) Reassess Psych Med Effective Metoprolol Tartrate (Lopressor) 25 mg PO DAILY [facility] Last Admin: 06/05/18 09:24 Dose: 25 mg MAR Pulse and Blood Pressure Document 06/05/18 09:24 (Rec: 06/05/18 09:25 [id number]) Pulse Pulse Rate (60-90) 82 Blood Pressure Blood Pressure (100/60-150/90) 151/88 Multivitamins/Minerals (Therapeutic-M Tab) 1 tab PO 0800 [facility] Last Admin: 06/05/18 09:25 Dose: 1 tab Ondansetron HCl (Zofran Inj) 4 mg IVP Q6H PRN PRN Reason: Nausea/Vomiting Pantoprazole Sodium (Protonix Ec Tab) 40 mg PO 0600 [facility] Last Admin: 06/05/18 06:03 Dose: 40 mg Thiamine HCl (Vitamin B1 Tab) 50 mg PO DAILY [facility] Last Admin: 06/05/18 09:25 Dose: 50 mg Discontinued Medications Aspirin (Aspirin) 325 mg PO STAT STA Stop: 06/04/18 00:15 Last Admin: 06/04/18 00:25 Dose: 325 mg Famotidine (Pepcid) 20 mg IVP STAT STA Stop: 06/03/18 22:27 Last Admin: 06/03/18 23:04 Dose: 20 mg IVP Administration Document 06/03/18 23:04 CNR (Rec: 06/03/18 23:04 [facility]NR [id number] Charges for Administration # of IVP Administrations 1 Sodium Chloride (Sodium Chloride 0.9%) 1,000 mls @ 999 mls/hr IV .Q1H1M STA Stop: 06/04/18 00:57 Last Admin: 06/04/18 00:03 Dose: 999 mls/hr eMAR Start Stop Document 06/04/18 00:03 CNR (Rec: 06/04/18 00:03 [facility]NR [id number] Intravenous Solution Start Date 06/04/18 Start Time 00:03 End Date 06/04/18 End time 01:03 Total Infusion Time 60 Folic Acid 1 mg/ Thiamine HCl 100 mg/ Multivitamins/Vitamin C 10 ml/ Dextrose 1,011.2 mls @ 100 mls/hr IV .Q10H7M [facility] Last Admin: 06/05/18 09:16 Dose: Not Given Non-Admin Reason: still infusing Magnesium Sulfate (Magnesium Sulfate 2 Gm/50 Ml Water) 2 gm in 50 mls @ 25 mls/hr IV ONCE ONE Stop: 06/04/18 10:14 Last Admin: 06/04/18 08:45 Dose: 25 mls/hr eMAR Start Stop Document 06/04/18 08:45 MF (Rec: 06/04/18 08:45 [id number]) Intravenous Solution Start Date 06/04/18 Start Time 08:45 Lorazepam (Ativan) 1 mg IVP Q2H PRN; Protocol PRN Reason: Agitation Ondansetron HCl (Zofran Inj) 4 mg IVP STAT STA Stop: 06/03/18 22:27 Last Admin: 06/03/18 23:04 Dose: 4 mg IVP Administration Document 06/03/18 23:04 CNR (Rec: 06/03/18 23:04 CNR [id number] Charges for Administration # of IVP Administrations 1 Potassium Chloride (K-Dur 20 Meq Er Tab) 40 meq PO STAT STA Stop: 06/04/18 07:59 Last Admin: 06/04/18 08:45 Dose: 40 meq <George Hawkins - Last Filed: 06/05/18 11:31> - PA / [employer] INFORMATION CLERK / Resident Statement / has reviewed & agrees with the documentation as recorded. <George Hawkins - Last Filed: 06/05/18 11:31> Disposition/Present on Arrival - Present on Arrival Any Indicators Present on Arrival: No History of DVT/PE: No History of Uncontrolled Diabetes: No Urinary Catheter: No History of Decub. Ulcer: No History Surgical Site Infection Following: None - Disposition Have Diagnosis and Disposition been Completed?: Yes Disposition Time: 00:10 Patient Plan: Admission <Noelle Feldman - Last Filed: 06/04/18 00:38> <George Hawkins - Last Filed: 06/05/18 11:31> - Disposition Diagnosis: Chest pain, Transaminitis, Abdominal pain Disposition: HOSPITALIZED Patient Problems: Current Active Problems Problem Status Onset Abdominal pain Acute Chest pain Acute Transaminitis Chronic Condition: FAIR
[2018-06-03 23:54] LABS: ALB/GLOB RATIO 1.1 (1.1-1.8); ALBUMIN 4.3 g/dL (3.0-4.8); ALT/SGPT 75 U/L (7-56); AST/SGOT 85 U/L (17-59); BLOOD UREA NITROGEN 13 mg/dL (7-21); CALCIUM 9.2 mg/dL (8.4-10.5); GFR NON-AFRICAN AMERICAN > 60; LIPASE 105 U/L (23-300)
[2018-06-03] MEDS ORDERED: Sodium Chloride 0.9% 1,000 ML IV STA (23:57)
[2018-06-04 00:05] LABS: TROPONIN I < 0.01 ng/mL
[2018-06-04 00:21] LABS: CK-MB 4.7 ng/mL (0.0-3.6)
[2018-06-04 00:24] LABS: URINE BILIRUBIN NEGATIVE (NEGATIVE); URINE BLOOD TRACE-LYSED (NEGATIVE); URINE GLUCOSE (UA) NEGATIVE (NEGATIVE); URINE LEUKOCYTE ESTERASE NEGATIVE Leu/uL (NEGATIVE); URINE PROTEIN 30 mg/dL (<30 mg/dL); URINE UROBILINOGEN 0.2 E.U./dL (<1 E.U./dL)
[2018-06-04 00:25] LABS: URINE APPEARANCE SL CLOUDY (CLEAR); URINE COLOR YELLOW (YELLOW)
[2018-06-04 00:34] LABS: BARBITURATES, UR NEGATIVE (NEGATIVE); BENZODIAZEPINES, UR NEGATIVE (NEGATIVE); OPIATES, UR NEGATIVE (NEGATIVE); PHENCYCLIDINE, UR NEGATIVE (NEGATIVE)
[2018-06-04 00:36] LABS: URINE RBC 0 - 2 /hpf (0-2); URINE WBC NEGATIVE /hpf (0-6)
[2018-06-04 00:37] LABS: URINE BACTERIA FEW (NEG)
[2018-06-04] MEDS: Folic Acid 1 MG, Thiamine 100 MG, Multivitamin (MVI) 10 ML in Dextrose 5% In Water 1,00... IV SCH ×3 (01:28→22:00)
--- NOTE | 2018-06-04 02:01 | CP.PCM.HP ---
History of Present Illness - History of Present Illness History of Present Illness: Segun Hernandez PGY-1 Medicine H&P Note for Dr. Selam Berg: CC: Vomiting and chest pain Pt is a 63 yo M with pmhx of Etoh abuse who present to the ED for vomiting and chest pain. Pt is poor historian, but is bedside to help with the history. Pts states that he had 1 pint of vodka and 3 cans of beer before he started vomiting. She states that the vomiting was green in color without any blood. She states that he had 3 episodes of vomiting before he began stating that he had chest pain. The states that the pt stated it was on his L side without any radiation down the arm. Pt is currently stating that the pain is in the upper L chest area where a stent was placed for unknown reasons per . Pt states that the pain is also present in his shoulder and neck area, and it is worse with palpation. Pt states that the chest pain was not made worse with exertion. Pt is currently denying fevers, chills, cough, SOB, constipation, diarrhea, dysuria or frequency. Pt admits to chest pain that is not worse with exertion, abd pain, and n/v. Pmhx: Etoh abuse Pshx: Right leg surgery with [place] placement All: Oral and IV contrast Social: Per no hx of tobacco use, drinks daily 2-3 pints of vodka, no illicit drug use Fam Hx: unsure PMD: [place] Present on Admission - Present on Admission Any Indicators Present on Admission: No Review of Systems - Review of Systems Systems not reviewed;Unavailable: Intoxicated (pt is unable to accurately answer my ROS but what pt stated is included in HPI above) Past Patient History - Infectious Disease Hx of Infectious Diseases: None - Past Social History Smoking Status: Unknown If Ever Smoked - CARDIAC Hx Hypertension: Yes - PULMONARY Hx Respiratory Disorders: No - NEUROLOGICAL Hx Dizziness: Yes - HEENT Hx HEENT Problems: No - RENAL Hx Chronic Kidney Disease: No - ENDOCRINE/METABOLIC Hx Endocrine Disorders: No - HEMATOLOGICAL/ONCOLOGICAL Hx Blood Disorders: No - INTEGUMENTARY Hx Dermatological Problems: No - MUSCULOSKELETAL/RHEUMATOLOGICAL Hx Falls: Yes Hx Fractures: Yes Hx Unsteady Gait: Yes - GASTROINTESTINAL Hx Gastrointestinal Disorders: Yes (Fatty Liver) - GENITOURINARY/GYNECOLOGICAL Hx Prostate Problems: Yes Hx Urinary Tract Infection: Yes - PSYCHIATRIC Hx Psychophysiologic Disorder: Yes (ETOH wine, pint of vodka, beer every day) Hx Anxiety: Yes Hx Depression: Yes Hx Substance Use: No - SURGICAL HISTORY Hx Orthopedic Surgery: Yes ([place] in right leg, Plate in head) - ANESTHESIA Hx Anesthesia: Yes Hx Anesthesia Reactions: No Meds Allergies/Adverse Reactions: Allergies Allergy/AdvReac Type Severity Reaction Status Date / Time Iodinated Contrast- Oral and Allergy SWELLING Verified 12/15/17 16:58 IV Dye Physical Exam - Constitutional Appears: Non-toxic, No Acute Distress, Unkempt - Head Exam Head Exam: ATRAUMATIC, NORMAL INSPECTION, NORMOCEPHALIC - Eye Exam Eye Exam: EOMI, Normal appearance - Respiratory Exam Respiratory Exam: Clear to Auscultation Bilateral, NORMAL BREATHING PATTERN. absent: Accessory Muscle Use, Decreased Breath Sounds, Rales, Rhonchi, Wheezes, Respiratory Distress, Stridor - Cardiovascular Exam Cardiovascular Exam: RRR, +S1, +S2. absent: Gallop, Rubs - GI/Abdominal Exam GI & Abdominal Exam: Normal Bowel Sounds, Soft, Tenderness (present in R and LUQ). absent: Distended, Firm, Guarding - Extremities Exam Extremities exam: Positive for: normal capillary refill, pedal pulses present. Negative for: pedal edema - Back Exam Back exam: NORMAL INSPECTION. absent: CVA tenderness (L), CVA tenderness (R) - Neurological Exam Neurological exam: Altered - Psychiatric Exam Additional comments: intoxicated - Skin Skin Exam: Dry, Intact, Warm Results - Vital Signs Recent Vital Signs: Last Vital Signs Temp 98.0 F 06/03/18 22:22 Pulse 88 06/04/18 01:00 Resp 16 06/04/18 01:00 BP 124/62 06/04/18 01:00 Pulse Ox 99 06/04/18 01:00 - Labs Result Diagrams: 06/03/18 22:40 06/03/18 23:09 Labs: Laboratory Results - last 24 hr 06/03/18 06/03/18 06/03/18 22:40 22:40 23:09 WBC 3.2 L RBC 3.83 Hgb 12.1 L Hct 36.0 L MCV 94.0 D MCH 31.6 MCHC 33.6 RDW 14.7 H Plt Count 318 MPV 10.0 Gran % 47.4 L Lymph % (Auto) 44.1 H Charles % (Auto) 6.6 H Eos % (Auto) 1.3 L Baso % (Auto) 0.6 Gran # 1.52 Lymph # (Auto) 1.4 Charles # (Auto) 0.2 Eos # (Auto) 0.0 Baso # (Auto) 0.02 PT 10.7 INR 0.94 APTT 32.8 Sodium 146 Potassium 3.7 Chloride 109 H Carbon Dioxide 26 Anion Gap 15 BUN 13 Creatinine 0.8 Est GFR ( Amer) > 60 Est GFR (Non-Af Amer) > 60 Random Glucose 85 Calcium 9.2 Magnesium 1.8 Total Bilirubin 0.3 AST 85 H ALT 75 H Alkaline Phosphatase 82 Lactate Dehydrogenase 479 Total Creatine Kinase 584 H CK-MB (CK-2) 4.7 H CK-MB (CK-2) % Cancelled Troponin I < 0.01 Total Protein 8.2 Albumin 4.3 Globulin 3.9 Albumin/Globulin Ratio 1.1 Lipase 105 Urine Color Urine Appearance Urine pH Ur Specific [place] Urine Protein Urine Glucose (UA) Urine Ketones Urine Blood Urine Nitrate Urine Bilirubin Urine Urobilinogen Ur Leukocyte Esterase Urine RBC Urine WBC Ur Epithelial Cells Urine Bacteria Urine Other Urine Opiates Screen Urine Methadone Screen Ur Barbiturates Screen Ur Phencyclidine Scrn Ur Amphetamines Screen U Benzodiazepines Scrn U Oth Cocaine Metabols U Cannabinoids Screen Alcohol, Quantitative 06/04/18 06/04/18 06/04/18 00:03 00:03 00:30 WBC RBC Hgb Hct MCV MCH MCHC RDW Plt Count MPV Gran % Lymph % (Auto) Charles % (Auto) Eos % (Auto) Baso % (Auto) Gran # Lymph # (Auto) Charles # (Auto) Eos # (Auto) Baso # (Auto) PT INR APTT Sodium Potassium Chloride Carbon Dioxide Anion Gap BUN Creatinine Est GFR ( Amer) Est GFR (Non-Af Amer) Random Glucose Calcium Magnesium Total Bilirubin AST ALT Alkaline Phosphatase Lactate Dehydrogenase Total Creatine Kinase CK-MB (CK-2) CK-MB (CK-2) % Troponin I Total Protein Albumin Globulin Albumin/Globulin Ratio Lipase Urine Color Yellow Urine Appearance Sl cloudy Urine pH 6.0 Ur Specific [place] >= 1.030 Urine Protein 30 H Urine Glucose (UA) Negative Urine Ketones Negative Urine Blood Trace-lysed H Urine Nitrate Negative Urine Bilirubin Negative Urine Urobilinogen 0.2 Ur Leukocyte Esterase Negative Urine RBC 0 - 2 Urine WBC Negative Ur Epithelial Cells 3 - 4 Urine Bacteria Few Urine Other Mucus Urine Opiates Screen Negative Urine Methadone Screen Negative Ur Barbiturates Screen Negative Ur Phencyclidine Scrn Negative Ur Amphetamines Screen Negative U Benzodiazepines Scrn Negative U Oth Cocaine Metabols Negative U Cannabinoids Screen Negative Alcohol, Quantitative 232 H Assessment & Plan - Assessment and Plan (Free Text) Assessment: Pt is a 63 yo M with pmhx of Etoh abuse, CAD s/p stent (2003) who present to the ED for vomiting and chest pain. Pt is intoxicated upon exam, but chest pain is reproducible upon PE. EKG is NSR with no ST-T wave changes and inital trops -. Lipase is wnl. Plan: 1. Chest pain r/o ACS: - Pts chest pain is reproduicble on PE - EKG showed NSR with no ST-T Wave changes - Pt states that his chest pain has improved, and only started after he vomited - Initial trops <.01, will trend x2 - ASA 81mg - Will continue to monitor 2. EtOH abuse: - CIWA protocol - Ativan 1mg q2 - Banana bag started - f/u mag and phos - Thiamine, folic acid and multi-vitamins daily 3. Vomiting: - Zofran PRN - Lipase wnl - Will continue to monitor 4. PPX: DVT: Heparin GI: Protonix
[2018-06-04 05:14] VITALS: BMI 20.9
[2018-06-04] MEDS: Pantoprazole 40 mg EC Tab PO SCH (06:11)
[2018-06-04 07:05] LABS: BASO # 0.02 K/mm3 (0.0-2.0); BASO % 0.6 % (0.0-3.0); EOS # 0.1 (0.0-0.7); EOS % 1.8 % (1.5-5.0); GRAN # 1.34 (1.4-6.5); HEMOGLOBIN 10.8 g/dL (14.0-18.0); LYMPH # 1.6 (1.2-3.4); LYMPH % 48.3 % (22.0-35.0); MEAN CELL VOLUME 94.1 fl (80.0-105.0); MEAN CORPUSCULAR HEMOGLOBIN 30.5 pg (25.0-35.0); MEAN CORPUSCULAR HGB CONC 32.4 g/dl (31.0-37.0); MEAN PLATELET VOLUME 9.8 fl (7.0-11.0); MONO # 0.3 (0.1-0.6); MONO % 8.3 % (1.0-6.0); RBC 3.54 10^6/uL (3.5-6.1); RED CELL DISTRIBUTION WIDTH 14.5 % (11.5-14.5); WHITE BLOOD COUNT 3.3 10^3/uL (4.5-11.0)
[2018-06-04 07:33] LABS: ALB/GLOB RATIO 1.1 (1.1-1.8); ALBUMIN 3.7 g/dL (3.0-4.8); ALT/SGPT 70 U/L (7-56); AST/SGOT 78 U/L (17-59); BLOOD UREA NITROGEN 11 mg/dL (7-21); CALCIUM 8.3 mg/dL (8.4-10.5); GFR NON-AFRICAN AMERICAN > 60
[2018-06-04 07:40] LABS: TROPONIN I < 0.01 ng/mL
[2018-06-04] MEDS ORDERED: Potassium Chloride 20 mEq ER Tab PO STA (07:58)
[2018-06-04] MEDS ORDERED: Magnesium Sulfate 2 GM in Sodium Chloride 0.9% 100 ML IVPB ONE (08:00)
[2018-06-04] MEDS ORDERED: Magnesium Sulfate 2 gm/50 ml 2 GM/50 ML BAG IV ONE (08:15)
[2018-06-04] MEDS: Multivitamin With Minerals Tab PO SCH (08:45)
--- NOTE | 2018-06-04 09:06 | RAD ---
Date of service: 06/03/2018 HISTORY: chest pain COMPARISON: 12/15/2017 FINDINGS: LUNGS: No active pulmonary disease. PLEURA: No significant pleural effusion identified, no pneumothorax apparent. CARDIOVASCULAR: No aortic atherosclerotic calcification present. Normal cardiac size. No pulmonary vascular congestion. OSSEOUS STRUCTURES: No significant abnormalities. VISUALIZED UPPER ABDOMEN: Normal. OTHER FINDINGS: None. IMPRESSION: No active disease.
[2018-06-05] MEDS: Folic Acid 1 MG, Thiamine 100 MG, Multivitamin (MVI) 10 ML in Dextrose 5% In Water 1,00... IV SCH ×2 (00:15→09:16)
[2018-06-05] MEDS: Pantoprazole 40 mg EC Tab PO SCH (06:03)
[2018-06-05 06:16] VITALS: O2SAT 99
[2018-06-05 06:58] LABS: BASO # 0.01 K/mm3 (0.0-2.0); BASO % 0.3 % (0.0-3.0); EOS # 0.1 (0.0-0.7); EOS % 2.5 % (1.5-5.0); GRAN # 1.46 (1.4-6.5); GRAN % 46.2 % (50.0-68.0); HEMOGLOBIN 11.8 g/dL (14.0-18.0); LYMPH # 1.3 (1.2-3.4); LYMPH % 41.5 % (22.0-35.0); MEAN CELL VOLUME 93.2 fl (80.0-105.0); MEAN CORPUSCULAR HEMOGLOBIN 30.7 pg (25.0-35.0); MONO # 0.3 (0.1-0.6); MONO % 9.5 % (1.0-6.0); RBC 3.84 10^6/uL (3.5-6.1); RED CELL DISTRIBUTION WIDTH 13.8 % (11.5-14.5); WHITE BLOOD COUNT 3.2 10^3/uL (4.5-11.0)
[2018-06-05 07:36] LABS: ALBUMIN 3.8 g/dL (3.0-4.8); ALT/SGPT 70 U/L (7-56); AST/SGOT 78 U/L (17-59); BLOOD UREA NITROGEN 14 mg/dL (7-21); CALCIUM 8.7 mg/dL (8.4-10.5); GFR NON-AFRICAN AMERICAN > 60
--- NOTE | 2018-06-05 08:02 | CARD ---
APPROVED REPORT Date of service: 06/03/2018 EKG Measurement Heart [id number] <Conclusion> Normal sinus rhythm LVH by voltage QS v1,2 not seen on this ECG c/w ECG 12/15/17.
[2018-06-05] MEDS: Multivitamin With Minerals Tab PO SCH (09:25)
--- NOTE | 2018-06-05 11:37 | CP.PCM.PN ---
<Danielito Pineda - Last Filed: 06/05/18 11:31> Subjective - Date & Time of Evaluation Date of Evaluation: 06/05/18 Time of Evaluation: 11:32 - Subjective Subjective: INTERNAL MEDICINE PROGRESS NOTE FOR DR. RAVIN Pineda PGY-1 Pt seen and examined at bedside this am. No acute nursing events overnight. Pt denies acute complaints. His 12 point ROS is negative. Objective - Vital Signs/Intake and Output Vital Signs (last 24 hours): Temp Pulse Resp BP Pulse Ox 98.7 F 82 20 151/88 H 99 06/05/18 06:00 06/05/18 09:24 06/05/18 06:00 06/05/18 09:24 06/05/18 06:00 Intake and Output: 06/05/18 06/05/18 06:59 18:59 Intake Total 2420 Output Total 1825 Balance 595 - Medications Medications: Current Medications Aspirin (Ecotrin) 81 mg PO DAILY [facility] Last Admin: 06/05/18 09:25 Dose: 81 mg Folic Acid (Folic Acid) 1 mg PO DAILY [facility] Last Admin: 06/05/18 09:24 Dose: 1 mg Heparin Sodium (Porcine) (Heparin) 5,000 units SC Q8 JAYME; Protocol Last Admin: 06/05/18 06:03 Dose: 5,000 units Lorazepam (Ativan) 1 mg IVP Q4H PRN; Protocol PRN Reason: Symptoms of alcohol withdrawl Last Admin: 06/04/18 11:32 Dose: 1 mg Metoprolol Tartrate (Lopressor) 25 mg PO DAILY [facility] Last Admin: 06/05/18 09:24 Dose: 25 mg Multivitamins/Minerals (Therapeutic-M Tab) 1 tab PO 0800 [facility] Last Admin: 06/05/18 09:25 Dose: 1 tab Ondansetron HCl (Zofran Inj) 4 mg IVP Q6H PRN PRN Reason: Nausea/Vomiting Pantoprazole Sodium (Protonix Ec Tab) 40 mg PO 0600 [facility] Last Admin: 06/05/18 06:03 Dose: 40 mg Thiamine HCl (Vitamin B1 Tab) 50 mg PO DAILY [facility] Last Admin: 06/05/18 09:25 Dose: 50 mg - Labs Labs: 06/05/18 06:30 06/05/18 06:30 PT 10.7 SECONDS (9.4-12.5) 06/03/18 22:40 INR 0.94 06/03/18 22:40 APTT 32.8 Seconds (25.1-36.5) 06/03/18 22:40 - Constitutional Appears: Well, Non-toxic, No Acute Distress - Head Exam Head Exam: NORMAL INSPECTION, NORMOCEPHALIC - Eye Exam Eye Exam: EOMI, Normal appearance - ENT Exam ENT Exam: Mucous Membranes Moist, Normal Exam - Neck Exam Neck Exam: Normal Inspection - Respiratory Exam Respiratory Exam: Clear to Ausculation Bilateral, NORMAL BREATHING PATTERN. absent: Rales, Rhonchi, Wheezes - Cardiovascular Exam Cardiovascular Exam: REGULAR RHYTHM, +S1, +S2 - GI/Abdominal Exam GI & Abdominal Exam: Soft, Tenderness (R & L LQ). absent: Guarding, Rigid - Extremities Exam Extremities Exam: Normal Inspection. absent: Calf Tenderness - Back Exam Back Exam: NORMAL INSPECTION - Neurological Exam Neurological Exam: Alert, Awake, Oriented x3 - Psychiatric Exam Psychiatric exam: Normal Affect, Normal Mood - Skin Skin Exam: Dry, Intact, Warm Assessment and Plan - Assessment and Plan (Free Text) Assessment: Pt is a 63 yo M with pmhx of Etoh abuse, CAD s/p stent (2003) who present to the ED for vomiting and chest pain. Pt was admitted to r/o ACS and ETOH withdrawal. Plan: Chest pain r/o ACS: No EKG changes, trops (-) x 3 ASA 81mg metoprolol 25mg Will continue to monitor Transaminitis Elevated LFTs with elevated bilirubin f/u abdominal u/s EtOH withdrawal: CIWA protocol Ativan 1mg q4 prn Folic acid, thiamine, multivitamin Banana bag completed Thiamine, folic acid and multi-vitamins daily aspiration precautions, seizure precautions, fall precautions, CIWA Vomiting: Zofran PRN Lipase wnl Will continue to monitor PPX: DVT: Heparin GI: Protonix Case seen, examined and discussed with attending physician, Dr. Rondon <Sania Rondon R - Last Filed: 06/06/18 10:55> Objective - Vital Signs/Intake and Output Vital Signs (last 24 hours): Temp Pulse Resp BP Pulse Ox 98.1 F 77 19 118/78 99 06/05/18 12:00 06/05/18 14:00 06/05/18 12:00 06/05/18 12:00 06/05/18 06:00 - Labs Labs: 06/05/18 06:30 06/05/18 06:30 PT 10.7 SECONDS (9.4-12.5) 06/03/18 22:40 INR 0.94 06/03/18 22:40 APTT 32.8 Seconds (25.1-36.5) 06/03/18 22:40 Attending/Attestation - Attestation I have personally seen and examined this patient.: Yes I have fully participated in the care of the patient.: Yes I have reviewed all pertinent clinical information, including history, physical exam and plan: Yes Notes (Text): Patient seen and examined by me with resident at 9:20 AM on 06/05/18. Case including HPI, physical exam, and assessment and plan discussed with resident. Agree with above with following additions/corrections. Patient is a 63-year-old male with past medical history significant for alcohol abuse that presented to emergency room for vomiting and chest pain. Patient states he is feeling better today. Vomiting resolved. Patient complains of generalized abdominal pain. No nausea. Also with reproducible chest pain and back pain. No headaches or dizziness. No change in vision. No lightheadedness. No shortness of breath. No fevers or chills. No dysuria. No diarrhea or constipation. Physical exam: General: Awake and alert lying in bed in no acute distress HEENT: Normocephalic, atraumatic. Extraocular muscles intact, pupils equal and reactive, no scleral icterus. Oropharynx is pink and moist. Neck is supple. Cardiovascular: Regular rhythm. Normal S1 and S2. No murmurs, rubs, or gallops appreciated Pulmonary: Normal respiratory effort. No rhonchi, rales, or wheezing appreciated. Gastrointestinal: Soft, nondistended. Generalized tenderness. Positive bowel sounds all 4 quadrants. No guarding. Musculoskeletal: Moves all extremities. No calf tenderness. No CVA tenderness. No edema appreciated. Positive anterior chest wall tenderness. Central nervous system: AAO x3, CN 2-12 grossly intact. Dermatologic: Skin warm and dry. Assessment and plan: Patient is a 63-year-old male with past medical history significant for alcohol abuse to presented to emergency room for vomiting and chest pain. 1. Chest pain. Likely musculoskeletal. Troponins within normal limits. Continue with aspirin. Continue Metoprolol. ACS ruled out. 2. Alcohol abuse/withdrawal. Continue CIWA protocol. Continue Ativan as needed. Continue thiamine, folic acid, multivitamin. 3. Abdominal pain/elevated LFTs. LFTs stable. Likely secondary to alcohol abuse. Follow-up abdominal ultrasound. 4. Nausea or vomiting. Resolved. Continue to monitor. 5. Patient is a full code. Case was discussed in detail with the patient regarding current diagnosis and treatment plan. All questions answered.
[2018-06-05 12:54] VITALS: BP 118/78; RESP 19; TEMP 98.1
[2018-06-05 14:57] VITALS: PULSE 77
--- NOTE | 2018-06-05 18:37 | CP.PCM.DIS ---
Provider - Provider Date of Admission: 06/04/18 00:11 Attending physician: Sania Rondon DO Time Spent in preparation of Discharge (in minutes): 30 Hospital Course - Lab Results Lab Results: Most Recent Lab Values WBC 3.2 10^3/uL (4.5-11.0) L 06/05/18 06:30 RBC 3.84 10^6/uL (3.5-6.1) 06/05/18 06:30 Hgb 11.8 g/dL (14.0-18.0) L 06/05/18 06:30 Hct 35.8 % (42.0-52.0) L 06/05/18 06:30 MCV 93.2 fl (80.0-105.0) 06/05/18 06:30 MCH 30.7 pg (25.0-35.0) 06/05/18 06:30 MCHC 33.0 g/dl (31.0-37.0) 06/05/18 06:30 RDW 13.8 % (11.5-14.5) 06/05/18 06:30 Plt Count 287 10^3/uL (120.0-450.0) 06/05/18 06:30 MPV 10.0 fl (7.0-11.0) 06/05/18 06:30 Gran % 46.2 % (50.0-68.0) L 06/05/18 06:30 Lymph % (Auto) 41.5 % (22.0-35.0) H 06/05/18 06:30 [place] % (Auto) 9.5 % (1.0-6.0) H 06/05/18 06:30 Eos % (Auto) 2.5 % (1.5-5.0) 06/05/18 06:30 Baso % (Auto) 0.3 % (0.0-3.0) 06/05/18 06:30 Gran # 1.46 (1.4-6.5) 06/05/18 06:30 Lymph # (Auto) 1.3 (1.2-3.4) 06/05/18 06:30 [place] # (Auto) 0.3 (0.1-0.6) 06/05/18 06:30 Eos # (Auto) 0.1 (0.0-0.7) 06/05/18 06:30 Baso # (Auto) 0.01 K/mm3 (0.0-2.0) 06/05/18 06:30 PT 10.7 SECONDS (9.4-12.5) 06/03/18 22:40 INR 0.94 06/03/18 22:40 APTT 32.8 Seconds (25.1-36.5) 06/03/18 22:40 Sodium 137 mmol/L (132-148) 06/05/18 06:30 Potassium 3.9 mmol/L (3.6-5.0) 06/05/18 06:30 Chloride 104 mmol/L (98-107) 06/05/18 06:30 Carbon Dioxide 29 mmol/L (21-33) 06/05/18 06:30 Anion Gap 8 (10-20) L 06/05/18 06:30 BUN 14 mg/dL (7-21) 06/05/18 06:30 Creatinine 0.9 mg/dl (0.8-1.5) 06/05/18 06:30 Est GFR ( Amer) > 60 06/05/18 06:30 Est GFR (Non-Af Amer) > 60 06/05/18 06:30 Random Glucose 100 mg/dL (70-110) 06/05/18 06:30 Calcium 8.7 mg/dL (8.4-10.5) 06/05/18 06:30 Phosphorus 3.0 mg/dL (2.5-4.5) 06/05/18 06:30 Magnesium 1.8 mg/dL (1.7-2.2) 06/05/18 06:30 Total Bilirubin 1.5 mg/dL (0.2-1.3) H 06/05/18 06:30 AST 78 U/L (17-59) H 06/05/18 06:30 ALT 70 U/L (7-56) H 06/05/18 06:30 Alkaline Phosphatase 69 U/L (38-126) 06/05/18 06:30 Lactate Dehydrogenase 479 U/L (333-699) 06/03/18 23:09 Total Creatine Kinase 584 U/L (35-230) H 06/03/18 23:09 CK-MB (CK-2) 4.7 ng/mL (0.0-3.6) H 06/03/18 23:09 CK-MB (CK-2) % Cancelled 06/03/18 23:09 Troponin I < 0.01 ng/mL 06/04/18 11:00 Total Protein 7.4 g/dL (5.8-8.3) 06/05/18 06:30 Albumin 3.8 g/dL (3.0-4.8) 06/05/18 06:30 Globulin 3.7 gm/dL 06/05/18 06:30 Albumin/Globulin Ratio 1.0 (1.1-1.8) L 06/05/18 06:30 Lipase 105 U/L (23-300) 06/03/18 23:09 Urine Color Yellow (YELLOW) 06/04/18 00:03 Urine Appearance Sl cloudy (CLEAR) 06/04/18 00:03 Urine pH 6.0 (4.7-8.0) 06/04/18 00:03 Ur Specific [place] >= 1.030 (1.005-1.035) 06/04/18 00:03 Urine Protein 30 mg/dL (<30 mg/dL) H 06/04/18 00:03 Urine Glucose (UA) Negative mg/dL (NEGATIVE) 06/04/18 00:03 Urine Ketones Negative mg/dL (NEGATIVE) 06/04/18 00:03 Urine Blood Trace-lysed (NEGATIVE) H 06/04/18 00:03 Urine Nitrate Negative (NEGATIVE) 06/04/18 00:03 Urine Bilirubin Negative (NEGATIVE) 06/04/18 00:03 Urine Urobilinogen 0.2 E.U./dL (<1 E.U./dL) 06/04/18 00:03 Ur Leukocyte Esterase Negative Ankit/uL (NEGATIVE) 06/04/18 00:03 Urine RBC 0 - 2 /hpf (0-2) 06/04/18 00:03 Urine WBC Negative /hpf (0-6) 06/04/18 00:03 Ur Epithelial Cells 3 - 4 /hpf (0-5) 06/04/18 00:03 Urine Bacteria Few (NEG) 06/04/18 00:03 Urine Other Mucus 06/04/18 00:03 Urine Opiates Screen Negative (NEGATIVE) 06/04/18 00:03 Urine Methadone Screen Negative (NEGATIVE) 06/04/18 00:03 Ur Barbiturates Screen Negative (NEGATIVE) 06/04/18 00:03 Ur Phencyclidine Scrn Negative (NEGATIVE) 06/04/18 00:03 Ur Amphetamines Screen Negative (NEGATIVE) 06/04/18 00:03 U Benzodiazepines Scrn Negative (NEGATIVE) 06/04/18 00:03 U Oth Cocaine Metabols Negative (NEGATIVE) 06/04/18 00:03 U Cannabinoids Screen Negative (NEGATIVE) 06/04/18 00:03 Alcohol, Quantitative 232 mg/dL (0-10) H 06/04/18 00:30 - Hospital Course Hospital Course: Upon Admission: Pt is a 63 yo M with pmhx of Etoh abuse who presented to the ED for vomiting and chest pain. Pt was poor historian, but was at bedside to help with the history. Pts stated that he had 1 pint of vodka and 3 cans of beer before he started vomiting. She stated that the vomiting was green in color without any blood. She stated that he had 3 episodes of vomiting before he began stating that he had chest pain. The stated that the pt stated it was on his L side without any radiation down the arm. Pt complained of pain in the upper L chest area where a stent was placed for unknown reasons per . Pt stated that the pain was also present in his shoulder and neck area, and was worse with palpation. Pt stated that the chest pain was not made worse with exertion. Pt denied fevers, chills, cough, SOB, constipation, diarrhea, dysuria or frequency. Pt admits to chest pain that is not worse with exertion, abd pain, and n/v. Pt was admitted for ACS rule out and alcohol withdrawal Hospital Course: Pts EKG was evaluated which showed no ST-T wave changes. Troponins were trended which were all negative. Chest xray revealed no active disease. Pt was found to have elevated alchol level upon arrival. Pt was also treated with ETOH withdrawal with ativan 1mg q2h, banana bag, thiamine, folic acid and multivitami n supplements. Pts most recent CIWA score before discharge was 1. He was found to have transaminitis with elevated t. epña. Abdominal ultrasound was ordered. While abdominal ultrasound was pending, pt had informed nursing staff that he wanted to sign out against medical advice. advanced manufacturing vice president was adid and responded immediately. Upon Discharge Pt was explained the benefits, risk and alternatives to hospitalization and signing out AMA (please see signed AMA form). Pt was AxOx 3 and was capable of making his own decision. He did not appear intoxicated and was not actively withdrawing. Extensive discussion was had with the patient. Benefits included further workup of his abdominal pain and transaminitis. Risks included worsening of current condition, liver failure, heart attach, alcohol withdrawal and ultimately . Despite the lengthy conversation, pt still requested to sign out against medical advice. He was evaluated by medical device sales consultant before leaving. Discharge Exam - Head Exam Head Exam: NORMAL INSPECTION, NORMOCEPHALIC - Eye Exam Eye Exam: EOMI, Normal appearance - ENT Exam ENT Exam: Normal Exam - Respiratory Exam Respiratory Exam: NORMAL BREATHING PATTERN - Cardiovascular Exam Cardiovascular Exam: REGULAR RHYTHM, +S1, +S2 - GI/Abdominal Exam GI & Abdominal Exam: Tenderness (RUQ). absent: Firm, Guarding - Extremities Exam Extremities exam: normal inspection - Back Exam Back exam: NORMAL INSPECTION - Neurological Exam Neurological exam: Alert, Oriented x3 - Psychiatric Exam Psychiatric exam: Normal Affect, Normal Mood - Skin Skin Exam: Dry, Intact, Warm Discharge Plan - Follow Up Plan Condition: FAIR Disposition: AGAINST MEDICAL ADVICE
== END 2018-06-05 16:41 | disposition left against medical advice (07) ==
LOC: ED 22:07 → ERH 06-04 00:11 → 2RSO 06-04 02:13
PROVIDERS: ADMIT Hospitalist; ATTEND Hospitalist
DX: F10.239 Alcohol dependence with withdrawal, unspecified (principal); Y90.7 Blood alcohol level of 200-239 mg/100 ml; R07.9 Chest pain, unspecified; R11.2 Nausea with vomiting, unspecified; I10 Essential (primary) hypertension; I25.10 Atherosclerotic heart disease of native coronary artery without angina pectoris; K76.0 Fatty (change of) liver, not elsewhere classified; Z95.5 Presence of coronary angioplasty implant and graft
CPT/HCPCS: 36415; 71045; 80053; 81001; 82550; 82553; 83615; 83690; 83735; 84100; 84484; 85025; 85610; 85730; 93005; 96361; 96372; 96374; 96375; 96376; 97116; 97161; 99285; G0378; G0480; G8978; G8979; J1644; J2060; J2405; J3411; J7030; J7070

== ENCOUNTER 2018-07-28 11:55 | Emergency (ER) | payer MEDICARE ==
[2018-07-28 11:56] VITALS: BMI 19.3
[2018-07-28 12:41] VITALS: RESP 18
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
[2018-07-28] MEDS ORDERED: Sodium Chloride 0.9% 1,000 ML IV STA (12:51)
[2018-07-28] MEDS ORDERED: Atrop/Hyosc/Scopal/PB Elixir (120 ml) PO STA (12:52)
[2018-07-28] MEDS ORDERED: Alum-Mag Hydrox-Simethicone Susp (30 mL) PO STA (12:52)
[2018-07-28 13:47] VITALS: BP 140/72; PULSE 68; TEMP 98.3; O2SAT 95
--- NOTE | 2018-07-29 08:26 | CARD ---
APPROVED REPORT Date of service: 07/28/2018 EKG Measurement Heart [id number] <Conclusion> Normal sinus rhythm LVH by voltage
== END 2018-07-28 13:49 | disposition short-term general hospital (02) ==
LOC: ED 11:55
DX: H26.8 Other specified cataract (principal)